=== PATIENT | female | born 1955 | race Caucasian/White ===

== ENCOUNTER → 2020-08-13 08:09 | Outpatient (CLI) | payer BC, SELFPAY ==
--- NOTE | ~2020-08-13 | CT_ITS ---
EXAMINATION:CT chest w con DATE: 08/13/2020 08:39 INDICATION: Chest pain. Shortness of breath. Cough. COVID-19 pneumonia. TECHNIQUE: Computed tomography (CT) of the chest was performed with 75 mL Omnipaque 350 intravenous c ontrast. Automated exposure control and iterative reconstruction technique were employed. The dose-le ngth product (DLP) was 520.32 mGy-cm. COMPARISON: Chest CT 10/20/2008, CT abdomen and pelvis 06/25/2016 FINDINGS: There are patchy groundglass opacities involving all lobes. A calcified left lung nodule an d calcified left hilar and mediastinal lymph nodes are consistent with old granulomatous disease. No pleural effusion. The heart size is normal. There are coronary artery calcifications. There is a smal l pericardial effusion. There is mild bilateral hilar lymphadenopathy. Partially visualized is a rn chronic adelita cyst with calcification in left kidney. There is mild thoracic spondylosis. IMPRESSION: 1. Diffuse lung disease, consistent with pneumonia. 2. Mild bilateral hilar lymphadenopathy, likely reactive. 3. Small pericardial effusion. Reviewed, dictated and finalized at location A. RAL NEUROLOGIST
[2020-08-13 08:27] LABS: Estimated Glomerular Filt Rate > 60
== END ==
PROVIDERS: PCP Emergency Medicine; Visit Provider Emergency Medicine
DX: U07.1 COVID-19 (principal); J18.9 Pneumonia, unspecified organism; R06.00 Dyspnea, unspecified; J12.89 Other viral pneumonia; I25.10 Atherosclerotic heart disease of native coronary artery without angina pectoris; R59.0 Localized enlarged lymph nodes; I31.3 Pericardial effusion (noninflammatory); N28.1 Cyst of kidney, acquired; N20.0 Calculus of kidney
CPT/HCPCS: 71260; Q9967

== ENCOUNTER 2020-08-27 11:36 | Outpatient (NON) | payer BC, SELFPAY ==
[2020-08-27 23:25] LABS: SARS-CoV-2 RNA PCR Negative
== END 2020-08-27 11:37 ==
LOC: ANHCOVIDDT 11:38
PROVIDERS: PCP Emergency Medicine; Visit Provider Emergency Medicine
DX: Z20.828 Contact with and (suspected) exposure to other viral communicable diseases (principal); R09.89 Other specified symptoms and signs involving the circulatory and respiratory systems
CPT/HCPCS: 87635; C9803; U0003

== ENCOUNTER → 2020-09-23 17:02 | Outpatient (CLI) | payer BC, SELFPAY ==
--- NOTE | ~2020-09-23 | XR_ITS ---
EXAMINATION: XR chest 2V DATE: 09/23/2020 17:23 INDICATION: Shortness of breath TECHNIQUE: PA and lateral views of the chest are obtained. COMPARISON: 10/19/2008; CT, 08/13/2020 FINDINGS: The lungs are free of acute opacities. There is no pleural effusion or pneumothorax. The ca rdiomediastinal silhouette is normal. There is moderate thoracic spondylosis. IMPRESSION: 1. No acute cardiopulmonary abnormality. Reviewed, dictated and finalized at location A. RNATIONAL PROJECT ENGINEER
== END ==
PROVIDERS: PCP Emergency Medicine; Visit Provider Emergency Medicine
DX: J18.9 Pneumonia, unspecified organism (principal)
CPT/HCPCS: 71046

== ENCOUNTER → 2020-10-19 10:16 | Outpatient (CLI) | payer BC, SELFPAY ==
--- NOTE | ~2020-10-19 | MM_ITS ---
EXAMINATION: MM screening jazmyne BI w musa HISTORY: Screening TECHNIQUE: Craniocaudal and mediolateral oblique 3-D tomosynthesis images were obtained and synthetic 2-D images were generated. CAD analysis was submitted and interpreted. COMPARISON: No prior mammogram is available for comparison at this institution. BREAST PARENCHYMAL COMPOSITION: There are scattered areas of fibroglandular density. FINDINGS: There is no evidence of suspicious mass, calcification, or architectural distortion to sugg est malignancy in either breast. There has been no suspicious interval change. IMPRESSION: 1. No mammographic evidence of malignancy. 2. Recommend routine screening mammography in one year. BI-RADS Category 1: Negative Reviewed, dictated and finalized at location A. NCE EDITOR
--- NOTE | ~2020-10-19 | DEXA_ITS ---
Bone Density Report Name: Rola Recinos Age: 65 Sex: Female Ethnicity: White Date of : 1955 Indication: postmenopausal; screening for osteoporosis; hysterectomy; Referring Provider: WHITLEY MARTINEZ Study: Bone densitometry was performed. Exam Date: October 19, 2020 Accession number: [id number] Bone Density: Region BMD T-score Z-score Classification AP Spine (L1-L4) 1.115 0.6 2.3 Normal Femoral Neck (Left) 0.854 0.0 1.5 Normal Total Hip (Left) 0.969 0.2 1.4 Normal Femoral Neck (Right) 0.787 -0.6 0.9 Normal Total Hip (Right) 0.921 -0.2 1.0 Normal Total Hip Mean 0.945 0.0 1.2 Normal World Health Organization criteria for BMD impression classify patients as: Normal (T-score at or above -1.0), Osteopenia (T-score between -1.0 and -2.5), or Osteoporosis (T-score at or below -2.5). 10-year Fracture Risk: FRAX not reported because: All T-scores for Spine Total, Hip Total, Femoral Neck at or above -1.0 Clinical Information Provided by Patient: Has used the following medications: Vitamin D Has the following medical conditions: Hysterectomy Patient maximum height was 65 Menopause Age: 55 No regular weight bearing exercise Does not regularly consume dairy products Drinks caffeinated beverages Onset of menses at age 16 Number of children 3 Impression: The patient has normal bone mass. Discussion: BONE DENSITY IS ABOVE THE MINIMUM DESIRABLE LEVEL AT ALL SKELETAL SITES TESTED. This patient?s bone mineral density is above the minimum desirable level (T-score -1.0 or better) at all sites measured. The patient should follow a healthful lifestyle (good nutrition with adequate calcium and vitamin D, and appropriate weight-bearing exercise). Follow-Up: Consider repeating this study in 5 years or sooner if there is some new clinical indication. Reported by: DONNIE on 10/19/2020 10:48:00 AM. Reviewed, dictated and finalized at location AJovon PAULINO
== END ==
PROVIDERS: PCP Emergency Medicine; Visit Provider Emergency Medicine
DX: Z12.31 Encounter for screening mammogram for malignant neoplasm of breast (principal); Z78.0 Asymptomatic menopausal state
CPT/HCPCS: 77063; 77067; 77080

== ENCOUNTER → 2020-12-31 09:41 | Outpatient (CLI) | payer BC, SELFPAY ==
--- NOTE | ~2020-12-31 | US_ITS ---
EXAMINATION: US thyroid EXAM DATE: 12/31/2020 09:57 INDICATION: E04.1 - Nontoxic single thyroid nodule . TECHNIQUE: Multiple grayscale and Doppler images of the thyroid were obtained (by a technologist who performed the scan) and subsequently reviewed. Individual nodules and recommendations may be reporte d in accordance with TI-RADS system as designated by the 2017 ACR White Paper TI-RADS committee. Comp arison is made to prior examination from 06/05/2015. FINDINGS: The right there are lobe measures 6.6 x 2.6 x 2.6 cm, the left measuring 4.9 x 2.0 x 2.1 cm. These di mensions are mildly enlarged, and there is mildly diffusely heterogeneous thyroid echogenicity. David red to 2015 overall size of the thyroid has demonstrated modest interval decrease, with more homogene ous parenchyma echogenicity than previously seen. Largest nodule is in the right there are lobe measuring 1.8 x 1.1 x 1.3 cm, solid (2 points), isoecho ic (1 point), wider than tall, smooth well defined margin, without echogenic foci, category TR3 for t his nodule. In 2015 this was also the largest nodule, measuring 2.0 x 1.2 x 1.2 cm, has demonstrated modest interval decrease in size consistent with benign histology. There are scattered other subcent imeter TR 3 and TR 4 nodules bilaterally as previously seen. These are not likely clinically signific ant. IMPRESSION: Multinodular goiter. Return to clinical follow-up and if additional palpable abnormality develops a repeat ultrasound can be obtained. Reviewed, dictated and finalized at location A. IMPRESSION: Multinodular goiter. Return to clinical follow-up and if additiona l palpable abnormality develops a repeat ultrasound can be obtained.
== END ==
PROVIDERS: PCP Emergency Medicine; Visit Provider Internal Medicine Endocrinology, Diabetes & Metabolism
DX: E04.2 Nontoxic multinodular goiter (principal)
CPT/HCPCS: 76536

== ENCOUNTER → 2022-05-03 10:32 | Outpatient (CLI) | payer MEDICARE, SELFPAY ==
--- NOTE | ~2022-05-03 | MM_ITS ---
EXAMINATION: MM screening jazmyne BI w musa HISTORY: Screening mammogram TECHNIQUE: Craniocaudal and mediolateral oblique 3-D tomosynthesis images were obtained and synthetic 2-D images were generated. CAD analysis was submitted and interpreted. COMPARISON: 10/19/2020 BREAST PARENCHYMAL COMPOSITION: The breasts are almost entirely fatty. FINDINGS: There is no suspicious mass, calcification, or architectural distortion to suggest malignan cy in either breast. There has been no suspicious interval change. IMPRESSION: 1. No mammographic evidence of malignancy. 2. Recommend routine screening mammography in one year. BI-RADS Category 1: Negative Reviewed, dictated and finalized at location A.
== END ==
PROVIDERS: PCP Emergency Medicine; Visit Provider Emergency Medicine
DX: Z12.31 Encounter for screening mammogram for malignant neoplasm of breast (principal)
CPT/HCPCS: 77063; 77067

== ENCOUNTER → 2022-12-23 10:37 | Outpatient (CLI) | payer MEDICARE, SELFPAY ==
--- NOTE | ~2022-12-23 | US_ITS ---
Abdominal Sonogram: Real-time sonographic imaging of the abdomen was performed. Clinical History: Abdominal pain Findings: The liver appears echogenic, with no evidence of mass lesion or bile duct dilatation. Main portal vein demonstrates normal direction of flow. The spleen is normal in size without evidence of focal lesion. The gallbladder is well distended, and appears normal with no definite gallstone. Prob able gallbladder polyps measuring up to 8 mm. The common bile duct measures 4 mm. The visualized glover creas, aorta, and IVC are unremarkable. The right kidney measures 9.3 cm in length and the left kidn ey measures 9.9 cm. There is no hydronephrosis or renal calculus. Impression: Probable gallbladder wall polyps measuring up to 8 mm. Diffuse fatty infiltration of the liver. Reviewed, dictated and finalized at [facility]. Impression: Probable gallbladder wall polyps measuring up to 8 mm. Diffuse fatty infiltration of the liver.
== END ==
PROVIDERS: PCP Emergency Medicine; Visit Provider Emergency Medicine
DX: R10.10 Upper abdominal pain, unspecified (principal); K76.0 Fatty (change of) liver, not elsewhere classified
CPT/HCPCS: 76700

== ENCOUNTER 2023-01-25 07:20 | Outpatient (CLI) | payer MEDICARE, SELFPAY ==
--- NOTE | ~2023-01-25 | NM_ITS ---
EXAMINATION: NM hepatobiliary wo pharm DATE: 01/25/2023 10:11 INDICATION: Upper abdominal pain. COMPARISON: Abdomen ultrasound 12/23/2022 TECHNIQUE: 4.9 mCi Tc-99m mebrofenin (Choletec) was administered intravenously. Scintigraphic images of the abdomen were obtained for one hour. Then, the patient drank 8 oz Ensure, and imaging was cont inued for 60 minutes. FINDINGS: There is normal clearance of radiotracer from the blood pool. There is homogeneous tracer u ptake by the liver. Activity progresses to the bowel and gallbladder. Gallbladder ejection fraction (GBEF) was 30%. Note that with this technique, normal GBEF >= 33%. IMPRESSION: 1. Low gallbladder ejection fraction, consistent with gallbladder dysfunction and/or chronic cholecy stitis. Reviewed, dictated and finalized at location A. IMPRESSION: 1. Low gallbladder ejection fraction, consistent with gallbladder dysfunction and/or chronic cholecystitis.
== END 2023-01-25 07:21 | disposition home or self-care (01) ==
PROVIDERS: PCP Emergency Medicine; Visit Provider Emergency Medicine
DX: R10.10 Upper abdominal pain, unspecified (principal); K82.8 Other specified diseases of gallbladder
CPT/HCPCS: 78226; A9537

== ENCOUNTER 2023-02-06 09:04 | Outpatient (CLI) | payer MEDICARE, SELFPAY ==
--- NOTE | 2023-02-06 09:38 | ECG_ITS ---
Measurements Intervals [place] Rate: 70 P: -5 [place]: 232 QRS: 32 QRSD: 84 T: 34 QT: 365 QTc: 394 Interpretive Statements SINUS RHYTHM WITH FIRST DEGREE AV BLOCK LOW QRS VOLTAGE IN PRECORDIAL LEADS NONSPECIFIC T-WAVE ABNORMALITY- ANTERIOR LEADS BASELINE ARTIFACT- I, II, III, AVR, AVL, V3, V5-V6 BORDERLINE ECG NO PREVIOUS ECG AVAILABLE FOR COMPARISON Electronically Signed On 02-06-2023 9:59:03 CDT by Marino Monge D.O.
[2023-02-06 10:21] LABS: Prothrombin Time 13.3 Seconds (11.1-14.7)
[2023-02-06 10:22] LABS: Partial Thromboplastin Time 25.3 SECONDS (22.3-36.8)
[2023-02-06 10:24] LABS: Anion Gap 7 mmol/L (8-16); Blood Urea Nitrogen 11 mg/dL (7-17); Calcium 9.3 mg/dL (8.4-10.2); Carbon Dioxide 30 mmol/L (22-30); Chloride 101 mmol/L (98-107); Estimated Glomerular Filt Rate > 60; Glucose 179 mg/dL (65-110); Potassium 3.5 mmol/L (3.4-5.0); Sodium 138 mmol/L (137-145)
[2023-02-06 10:25] LABS: Alanine Aminotransferase 20 U/L (6-35); Albumin Level 4.4 g/dL (3.5-5.1); Alkaline Phosphatase 60 U/L (38-126); Amylase 85 U/L (30-110); Aspartate Amino Transferase 27 U/L (14-36); Bilirubin,Total 0.6 mg/dL (0.2-1.3); Lipase 172 U/L (23-300)
== END 2023-02-06 09:05 | disposition home or self-care (01) ==
PROVIDERS: Anesthesiology; PCP Emergency Medicine; Visit Provider Surgery
DX: Z01.818 Encounter for other preprocedural examination (principal); K82.8 Other specified diseases of gallbladder; K76.0 Fatty (change of) liver, not elsewhere classified; E11.9 Type 2 diabetes mellitus without complications
CPT/HCPCS: 36415; 80048; 80076; 82150; 83690; 85610; 85730; 86850; 86900; 86901; 93005

== ENCOUNTER 2023-02-07 00:08 | Day surgery (SDC) | payer MEDICARE, SELFPAY ==
[2023-02-03 09:29] VITALS: BMI 33.3
--- NOTE | 2023-02-03 09:44 | PC.NURSE ---
PRE-OP INSTRUCTIONS, PLEASE READ CAREFULLY Report to the Outpatient Waiting Room, entrance under the green pavilion located off [facility], at time _1000_ on date _02/07/23_. Planned Procedure Time: _1200_. Time changes happen often and if your time is changed the preop area will call you the afternoon before. - You and your visitor will be asked to self-screen and do not enter if you have any COVID symptoms. - A mask is optional within the hospital at this time. Patients may have clear liquids (water, carbonated beverages, clear teas, apple juice) until 3 hours prior to surgery (0900 AM) with a maximum of 20 ounces. - No food from midnight until time of surgery Take the following medications with a SIP of water the morning of surgery: _METHIMAZOLE_ DO NOT STOP ANY OF YOUR OTHER PRESCRIPTION MEDICATIONS PRIOR TO SURGERY ?EXCEPT THE FOLLOWING Medications to discontinue per ANESTHESIA -_VITAMINS/SUPPLEMENTS 3 DAYS PRIOR TO SURGERY, Date to take last dose 02/03/23_ Please no make-up, nail moroccan, hairspray, perfume, deodorant, or body powder the day of surgery. No jewelry (including any body piercings) or valuables the day of surgery, leave them at home. Please take a shower or bath the night before, or the morning of, surgery with an antibacterial soap. Wear comfortable, loose fitting clothing. - Jewelry must be removed prior to entering the operating room. Rings and piercings that are not removed may be cut off. - The hospital will not accept responsibility for valuables. - Please leave all valuables, including medications, at home the day of surgery. If you are going home after surgery, a licensed class a regional truck driver must drive you home. - NO public transportation without another adult if you receive anesthesia. - We recommend that an adult stay with you for 24 hours following discharge. - We also recommend that you do not drive, make important decision, drink alcoholic beverages, or take any drugs that were not prescribed by your health care provider for at least 24 hours after your discharge time. Follow any additional instructions given to you from your surgeon. HIBICLENS SHOWER AM OF SURGERY If you or anyone in your household have experienced Covid symptoms in the past week, please notify your surgeon or the nurse liaison at the phone number below for possible testing. Telephone instructions given to _PATIENT_and asked if any additional questions and then verbalized understanding. Patient advised to call surgeon office or pre surgery nurse liaison [phone] if any additional questions.
[2023-02-07] VITALS (16 sets, daily range): BP systolic 120–157; BP diastolic 42–85; PULSE 74–99; RESP 14–18; TEMP 36.6–36.7; O2SAT 88–99
[2023-02-07] MEDS: ACETAMINOPHEN 500 MG TABLET 1000 MG PO (10:07)
[2023-02-07] MEDS: LACTATED RINGERS 1,000 ML 30 ML IV CONT ×3 (10:30→14:46)
[2023-02-07] MEDS: KETOROLAC 15 MG/ML VIAL (*BKC) IV PUSH ×2 (10:31→13:59)
[2023-02-07 10:35] LABS: Glucose Point of Care 96 mg/dl (65-105)
[2023-02-07] MEDS: INDOCYANINE GREEN 25 MG VIAL WITH DILUENT 3.75 MG IV PUSH (10:38)
--- NOTE | 2023-02-07 12:14 | WPDHPUPDATE1 ---
History and Physical Update Update Date/Time: 02/07/23 12:14 History and Physical has been reviewed, including an updated exam of the patient. There are NO changes in the patient's condition. Risks, benefits, and alternatives have been discussed and questions answered. Patient agrees to proceed with procedure.
--- NOTE | 2023-02-07 12:19 | WPDANESEPPF ---
Anes - Initial Pre Proc Eval Procedure: Operation Date: 02/07/23 12:00 Proposed Procedures p Robotic Assisted Laparoscopic Cholecystectomy, Possible Open - Myles Gore MD Date/Time: 02/07/23 12:19 Surgeon: Myles Gore MD Pre Op Diagnosis: gallbladder polyp and dysfunction Patient Data Age: 67 Gender: F Height: 1.66 m Weight: 92.27 kg Last Vital Signs Temp 98.1 F 02/07/23 10:40 Pulse 79 02/07/23 10:40 Resp 16 02/07/23 10:40 BP 130/77 02/07/23 10:40 Pulse Ox 99 02/07/23 10:40 O2 Del Method Room Air 02/07/23 10:40 Allergies Allergy/AdvReac Type Severity Reaction Status Date / Time Penicillins Allergy Unknown Rash Verified 02/07/23 10:05 Home Medications Medication Instructions Recorded Confirmed Type lisinopril 20 1 tablet PO DAILY 09/10/20 02/03/23 History mg-hydrochlorothiazide 25 mg tablet rosuvastatin 10 mg tablet (Crestor) 10 mg PO DAILY 09/10/20 02/03/23 History aspirin 81 mg tablet,delayed 81 mg PO DAILY 12/17/20 02/03/23 History release (Adult Low Dose Aspirin) cholecalciferol (vitamin D3) 10 10 mcg PO DAILY 12/17/20 02/03/23 History mcg (400 unit) capsule metformin 500 mg tablet,extended 500 mg PO BID 12/17/20 02/03/23 History release 24 hr ascorbic acid (vitamin C) 500 mg 500 mg PO QAM 06/23/22 02/03/23 History capsule vit C 250 mg-vit E 90 mg-zinc 40 1 tablet PO BID 06/23/22 02/03/23 History mg-copper 1 [id number] capsule (PreserVision AREDS-2) methimazole 5 mg tablet See Rx Instructions .Route 12/26/22 02/03/23 Rx .COMPLEX #54 tabs omeprazole 20 mg capsule,delayed 20 mg PO DAILY 01/31/23 02/03/23 History release semaglutide 3 mg tablet (Rybelsus) 3 mg PO QAM 02/03/23 02/03/23 History Laboratory Tests 02/07/23 10:31 POC Capillary Glucose 96 mg/dl (65-105) Patient hx anesthesia problems: none Family hx anesthesia problems: none Results Review: All pre-operative results and documents have been reviewed as part of the pre-operative evaluation. [facility] Past Medical History Medical History Hypertension Hyperthyroidism Hypertriglyceridemia Type 2 diabetes mellitus Surgical History Surgical History H/O: hysterectomy Family History Family History Father Family history of malignant neoplasm Other Diabetes mellitus Family history of congestive heart failure Heart disease Social History Social History Smoking packs per day: 1 Smoking cigarettes per day: 20.0 Years smoked: 10 Smoking pack-years: 10.00 Smoking status: Former smoker Tobacco type: cigarettes Second hand tobacco smoke exposure: No Additional smoking assessment comments: PT STATES STOPPED SMOKING 2009~ Alcohol intake: never Substance use: never Substance use type: does not use Living arrangements: with family Occupation/Education: retired Spiritual care concerns: No Anes - Eval Final PreProcedure Day of Procedure 02/07/23 12:19 Patient weight: obese Heart: regular rate and rhythm Lungs: clear to auscultation Airway: Mallampati scale class III Neurological: alert and oriented Last oral intake: >/= 8 hours ASA classification: III Emergent: no Anesthetic plan: proceed Anesthesia type and monitoring: general ETT and standard monitoring Results Review: All pre-operative results and documents have been reviewed as part of the pre-operative evaluation. Informed Consent: The patient's anesthetic plan and its attendant risks and benefits were discussed with the patient/family/POA. Questions were solicited and answers provided to the satisfaction of the patient/family/POA.
[2023-02-07] MEDS: ceFAZolin 2 GM/D5W 50 ML 2 GM/50 ML BAG IVPB (12:24)
[2023-02-07] MEDS: LIDO 1%/EPINEPHRINE 1:100,000 50 ML VIAL 30 ML INFILTRATE (12:58)
[2023-02-07] MEDS: BUPivacaine HCL 0.5% PF 30 ML VIAL INFILTRATE (12:58)
--- NOTE | 2023-02-07 14:21 | W.PM.PROC2 ---
Procedure Note - Detailed Date of Procedure 02/07/23 Pre-op Diagnosis gallbladder polyp and dysfunction Post-op Diagnosis Same Procedure Performed Robotic assisted laparoscopic cholecystectomy Surgeon Myles Gore MD Sack Department Supervisor DONNIE Sarmiento Anesthesia General Indications The patient is a 7-year-old female presented with complaints of epigastric and right upper quadrant abdominal pain associated with eating. Abdominal ultrasound showed no evidence of gallstones but a HIDA scan showed a low ejection fraction gallbladder on 30%. She has symptoms of nausea and right upper quadrant pain with drinking the Ensure for the HIDA scan. Findings Minimal chronic inflammation the gallbladder with just a few adhesions of the omentum to the gallbladder. Gallbladder wall was relatively normal in appearance. No stones noted the gallbladder. Description of Procedure After informed consent was obtained patient brought to the operating room where she was placed supine position and general endotracheal anesthesia was administered. The abdomen then prepped and draped in usual sterile fashion. A time-out was then performed correctly identifying the patient as well as procedure performed and verified she was given perioperative IV antibiotics. I then proceeded to enter the abdomen left upper quadrant utilizing a 10 mm Optiview port. Once inside the abdomen I insufflated to adequate pneumoperitoneum 15mm Hg of CO2. Looking around the area the umbilicus there are no adhesions areas I placed the 8mm robotic trocar port periumbilical region and then additional 8mm trocar ports in the left and right sides of the abdomen all under direct visualization. The [employer] Rebecca robot was brought to the patient's bedside and the robotic arms were attached to the robotic ports. Robotic instruments advanced into the abdomen under visualization. I then scrubbed out the procedure sent out the robotic console to perform the dissection the gallbladder. The robotic grasper used the gallbladder at the dome of the gallbladder retracted towards the right shoulder over the right half liver. Second grasper was used to hold the gallbladder infundibulum. I then proceed to use the robotic hook cautery to strip down dissect the visceral peritoneum off of the infundibular gallbladder and identified the cystic artery and cystic duct. Firefly was used to confirm fluorescence imaging of the cystic duct and common bile duct. I then circumferentially dissected out the cystic duct and the cystic artery. Once I had the lower 3rd of the gallbladder dissected off of the right liver bed I then that I had the critical view and placed 2 clips proximal to cystic duct and 1 clip distally high on infundibular gallbladder. The cystic duct was then divided with robotic hook cautery. The cystic artery was then clipped and divided as well in similar fashion. The gallbladder was resected off the liver electrocautery. This is done without spilling any bile. Once the gallbladder was placed into an Endo-Catch bag was then brought out through the left upper quadrant trocar port site. Gallbladder and contents were sent to pathology for examination. I then inspected liver bed there is no evidence of bile leak and there was no bleeding. I then removed all the trocar ports under visualization all port sites appeared hemostatic. I then allowed the abdomen decompressed. The 10mm left upper quadrant trocar port fascial defect was then closed utilizing 0 Vicryl suture placed in a figure-eight fashion. The skin edges not the port sites of the proximal utilizing a running subcuticular 4 Monocryl suture. Incisions were then cleaned and then skin glue was applied for final dressing. The patient tolerated the procedure well no complications. All sponges, needles, and instrument counts were correct at the end procedure. EBL was _10__cc. The patient was awakened and taken to recovery in stable and satisfactory condition. Implants None
[2023-02-07] MEDS: fentaNYL CITRATE INJ (*CRX) 100 MCG/2 ML VIAL 25 MCG IV PUSH ×4 (14:22→14:50)
[2023-02-07 14:40] LABS: Glucose Point of Care 140 mg/dl (65-105)
[2023-02-07] MEDS: ONDANSETRON INJ 4 MG/2 ML VIAL IV PUSH (15:01)
[2023-02-07] MEDS: diphenhydrAMINE HCl INJ 50 MG/ML VIAL 12.5 MG IV PUSH (15:32)
[2023-02-07] MEDS: oxyCODONE HCL (*CRX) 5 MG TAB IR PO (17:50)
== END 2023-02-07 18:24 | disposition home or self-care (01) ==
PROVIDERS: PCP Emergency Medicine; Visit Provider Surgery
PROC: 0FT44ZZ Resection of Gallbladder, Percutaneous Endoscopic Approach (ICD-10-PCS; CPT 47562; principal; 2023-02-07 12:00)
DX: K81.1 Chronic cholecystitis (principal); I10 Essential (primary) hypertension; E11.9 Type 2 diabetes mellitus without complications; E78.1 Pure hyperglyceridemia; E05.90 Thyrotoxicosis, unspecified without thyrotoxic crisis or storm; Z87.891 Personal history of nicotine dependence; E66.9 Obesity, unspecified; Z68.33 Body mass index [BMI] 33.0-33.9, adult; Z79.84 Long term (current) use of oral hypoglycemic drugs; Z79.82 Long term (current) use of aspirin
CPT/HCPCS: 47562; S2900; 82948; 88304; A9270; J0690; J1100; J1170; J1200; J1885; J2250; J2405; J2704; J2710; J3010; J7120

== ENCOUNTER 2023-02-28 00:16 | Day surgery (SDC) | payer MEDICARE, SELFPAY ==
[2023-02-22 09:51] VITALS: BMI 32.0
--- NOTE | 2023-02-28 08:34 | WPDANESEPPF ---
Anes - Initial Pre Proc Eval Procedure: Operation Date: 02/28/23 10:00 Proposed Procedures p Esophagogastroduodenoscopy - Francis Brewer MD Date/Time: 02/28/23 08:34 Surgeon: Francis Brewer MD Pre Op Diagnosis: GERD, Abdominal Pain Patient Data Age: 67 Gender: F Height: 1.68 m Weight: 90 kg Allergies Allergy/AdvReac Type Severity Reaction Status Date / Time Penicillins Allergy Unknown Rash Verified 02/28/23 08:36 Home Medications Medication Instructions Recorded Confirmed Type lisinopril 20 1 tablet PO DAILY 09/10/20 02/22/23 History mg-hydrochlorothiazide 25 mg tablet rosuvastatin 10 mg tablet (Crestor) 10 mg PO DAILY 09/10/20 02/22/23 History aspirin 81 mg tablet,delayed 81 mg PO DAILY 12/17/20 02/22/23 History release (Adult Low Dose Aspirin) cholecalciferol (vitamin D3) 10 10 mcg PO DAILY 12/17/20 02/22/23 History mcg (400 unit) capsule metformin 500 mg tablet,extended 500 mg PO BID 12/17/20 02/22/23 History release 24 hr vit C 250 mg-vit E 90 mg-zinc 40 1 tablet PO BID 06/23/22 02/22/23 History mg-copper 1 [id number] capsule (PreserVision AREDS-2) methimazole 5 mg tablet See Rx Instructions .Route 12/26/22 02/22/23 Rx .COMPLEX #54 tabs omeprazole 20 mg capsule,delayed 20 mg PO DAILY 01/31/23 02/22/23 History release Patient hx anesthesia problems: none Family hx anesthesia problems: none Results Review: All pre-operative results and documents have been reviewed as part of the pre-operative evaluation. [facility] Past Medical History Medical History (Updated 02/28/23 @ 08:35 by Gianluca Ruiz MD) Hypertension Hyperthyroidism Hypertriglyceridemia Obesity Type 2 diabetes mellitus Surgical History Surgical History (Updated 02/21/23 @ 08:57 by REBA Hoyos) H/O: hysterectomy Hx laparoscopic cholecystectomy Robotic assisted lap sun on 02/07/23 Family History Family History Father Family history of malignant neoplasm Other Diabetes mellitus Family history of congestive heart failure Heart disease Social History Social History Smoking packs per day: 1 Smoking cigarettes per day: 20.0 Years smoked: 10 Smoking pack-years: 10.00 Smoking status: Former smoker Tobacco type: cigarettes Second hand tobacco smoke exposure: No Additional smoking assessment comments: PT STATES STOPPED SMOKING 2008~ Alcohol intake: never Substance use: never Substance use type: does not use Living arrangements: with family Occupation/Education: retired Spiritual care concerns: No Anes - Eval Final PreProcedure Day of Procedure 02/28/23 08:34 Patient weight: obese Heart: regular rate and rhythm Lungs: clear to auscultation Airway: Mallampati scale class III Neurological: alert and oriented Last oral intake: >/= 8 hours ASA classification: III Emergent: no Anesthetic plan: proceed Anesthesia type and monitoring: general GIVS and standard monitoring Results Review: All pre-operative results and documents have been reviewed as part of the pre-operative evaluation. Informed Consent: The patient's anesthetic plan and its attendant risks and benefits were discussed with the patient/family/POA. Questions were solicited and answers provided to the satisfaction of the patient/family/POA.
[2023-02-28 08:37] VITALS: BP 142/60; PULSE 77; RESP 20; TEMP 36.6; O2SAT 98
[2023-02-28] MEDS: LACTATED RINGERS 1,000 ML 150 ML IV CONT (08:50)
[2023-02-28 08:51] LABS: Glucose Point of Care 118 mg/dl (65-105)
--- NOTE | 2023-02-28 08:52 | PM.HPGS ---
History of Present Illness History of Present Illness Consent: Risks, benefits, and alternatives have been discussed and questions answered. Patient agrees to proceed with procedure. Chief complaint: GERD, Abdominal Pain Narrative: Rola Recinos is a 67 year old female with gerd on ppi, recently had cholecystectomy and slightly better Review of Systems Constitutional: Constitutional: Denies headache(s) and Denies weakness Eyes: Eyes: Denies blurry vision ENT: Reports Normal hearing present, Denies headache(s) and Denies neck pain Cardiovascular: Cardiovascular: Denies chest pain and Denies dyspnea Respiratory: Respiratory: Denies dyspnea Gastrointestinal: Gastrointestinal: Reports no additional gastrointestinal complaints Genitourinary: Genitourinary: Denies dysuria Musculoskeletal: Musculoskeletal: Denies neck pain Integumentary/Breasts: Skin/Breast: Denies dry skin Neurologic: Reports Normal hearing present, Denies headache(s) and Denies weakness Psychiatric: Psychiatric: Denies anxiety Endocrine: Endocrine: Denies change in body appearance Hematologic/Lymphatic: Hematologic/Lymphatic: Denies easy bleeding Allergic/Immunologic: Allergic/Immunologic: Denies urticaria PMFSH Past Medical History Medical History (Updated 02/28/23 @ 08:53 by Francis Brewer MD) GERD (gastroesophageal reflux disease) Hypertension Hyperthyroidism Hypertriglyceridemia Obesity Type 2 diabetes mellitus Surgical History Surgical History (Updated 02/21/23 @ 08:57 by REBA Hoyos) H/O: hysterectomy Hx laparoscopic cholecystectomy Robotic assisted lap sun on 02/07/23 Family History Family History Father Family history of malignant neoplasm Other Diabetes mellitus Family history of congestive heart failure Heart disease Social History Social History Smoking packs per day: 1 Smoking cigarettes per day: 20.0 Years smoked: 10 Smoking pack-years: 10.00 Smoking status: Former smoker Tobacco type: cigarettes Second hand tobacco smoke exposure: No Additional smoking assessment comments: PT STATES STOPPED SMOKING 2009~ Alcohol intake: never Substance use: never Substance use type: does not use Living arrangements: with family Occupation/Education: retired Spiritual care concerns: No Meds Home Medications and Allergies Home Medications Medication Instructions Recorded Confirmed Type lisinopril 20 1 tablet PO DAILY 09/10/20 02/22/23 History mg-hydrochlorothiazide 25 mg tablet rosuvastatin 10 mg tablet (Crestor) 10 mg PO DAILY 09/10/20 02/22/23 History aspirin 81 mg tablet,delayed 81 mg PO DAILY 12/17/20 02/22/23 History release (Adult Low Dose Aspirin) cholecalciferol (vitamin D3) 10 10 mcg PO DAILY 12/17/20 02/22/23 History mcg (400 unit) capsule metformin 500 mg tablet,extended 500 mg PO BID 12/17/20 02/22/23 History release 24 hr vit C 250 mg-vit E 90 mg-zinc 40 1 tablet PO BID 06/23/22 02/22/23 History mg-copper 1 [id number] capsule (PreserVision AREDS-2) methimazole 5 mg tablet See Rx Instructions .Route 12/26/22 02/22/23 Rx .COMPLEX #54 tabs omeprazole 20 mg capsule,delayed 20 mg PO DAILY 01/31/23 02/22/23 History release Allergies Allergy/AdvReac Type Severity Reaction Status Date / Time Penicillins Allergy Unknown Rash Verified 02/28/23 08:36 Vital Signs Vital Signs - 24 hr 02/28/23 08:37 Temperature 97.8 F Pulse Rate 77 Respiratory Rate 20 Blood Pressure 142/60 H Pulse Oximetry 98 Oxygen Delivery Room Air Exam Const: General: comfortable and no acute distress HENMT: Face/Nose/Sinus: Normal nares present Eyes: General: appearance normal, both eyes and all related structures Neck: Neck: no JVD Resp: Auscultation: clear to auscultation bilaterally Cardio: Rate:
[2023-02-28 09:01] VITALS: BP 125/56; PULSE 68; RESP 20; O2SAT 97
[2023-02-28 09:11] VITALS: BP 113/51; PULSE 64; RESP 22; O2SAT 97
[2023-02-28 09:21] VITALS: BP 120/54; PULSE 65; RESP 20; O2SAT 97
== END 2023-02-28 09:32 | disposition home or self-care (01) ==
PROVIDERS: PCP Emergency Medicine; Visit Provider Internal Medicine Gastroenterology
PROC: 0DJ08ZZ Inspection of Upper Intestinal Tract, Via Natural or Artificial Opening Endoscopic (ICD-10-PCS; CPT 43235; principal; 2023-02-28 10:00)
DX: K21.9 Gastro-esophageal reflux disease without esophagitis (principal); K29.70 Gastritis, unspecified, without bleeding; I10 Essential (primary) hypertension; E05.90 Thyrotoxicosis, unspecified without thyrotoxic crisis or storm; E78.1 Pure hyperglyceridemia; E11.9 Type 2 diabetes mellitus without complications; E66.9 Obesity, unspecified; Z68.32 Body mass index [BMI] 32.0-32.9, adult; Z79.84 Long term (current) use of oral hypoglycemic drugs; Z79.82 Long term (current) use of aspirin; Z87.891 Personal history of nicotine dependence
CPT/HCPCS: 43239; 82948; 88305; J2704; J7120

== ENCOUNTER 2023-04-24 10:29 | Emergency (ER) | payer MEDICARE, SELFPAY ==
--- NOTE | ~2023-04-24 | CT_ITS ---
Non-contrast CT scan of the Abdomen and Pelvis Clinical indication: Right flank pain Technique: 2.5 mm axial scans were obtained through the abdomen and pelvis without intravenous or or al contrast. Dose reduction technique was used on this scan by utilizing automated exposure control a nd iterative reconstruction technique. The dose-length product (DLP) was 832.49 mGy-cm. COMPARISON: 06/25/2016 Findings: Images through the lung bases reveal no abnormalities. Probable punctate nonobstructing right renal stone present. Coarse parenchymal dystrophic calcificati on noted in the left kidney. No ureteral stone or hydronephrosis on either side. The liver, spleen, pancreas, and adrenals appear normal. Cholecystectomy clips are present. There are atherosclerotic calcifications of the aorta. There is no evidence of bowel obstruction. Images through the pelvis were performed. There is no evidence of ascites or lymphadenopathy. Urinary bladder unremarkable. No adnexal mass seen. No ascites. Impression: Punctate nonobstructing right renal stone. Reviewed, dictated and finalized at [facility]. Impression: Punctate nonobstructing right renal stone.
[2023-04-24 10:57] VITALS: BP 149/60; PULSE 90; RESP 20; TEMP 36.4; O2SAT 96
[2023-04-24 11:55] LABS: Basophils Absolute Auto 0.1 K/mm3 (0.0-0.1); Eosinophils Absolute Auto 0.3 K/mm3 (0-0.3); Eosinophils Percent Auto 4.9 % (0-4.4); Hematocrit 40.3 % (37.0-47.0); Hemoglobin 13.5 g/dL (12.0-15.0); Immature Granulocyte Absolute 0.01 K/mm3 (0.00-0.031); Immature Granulocyte Percent A 0.2 % (0-0.5); Lymphocytes Absolute Auto 1.21 K/mm3 (0.9-3.2); Lymphocytes Percent Auto 23.7 % (18.3-44.2); Mean Corpuscular HGB Conc 33.5 g/dl (32-36); Mean Corpuscular Hemoglobin 29.1 pg (26-34); Mean Corpuscular Volume 86.9 fl (80-100); Mean Platelet Volume 9.1 fl (7.4-10.4); Monocytes Absolute Auto 0.5 K/mm3 (0.1-0.6); Monocytes Percent Auto 9.2 % (2.6-8.5); Neutrophils Absolute Auto 3.1 K/mm3 (1.3-6.7); Platelet Count Result 225 k/mm3 (150-375); Red Blood Count 4.64 M/mm3 (4.2-5.4); Red Cell Distribution Width 13.2 % (11.5-14.5); White Blood Count 5.1 K/mm3 (4.5-10.0)
[2023-04-24] MEDS: ONDANSETRON INJ 4 MG/2 ML VIAL IV PUSH (12:01)
[2023-04-24] MEDS: KETOROLAC 30 MG/ML VIAL (*BKC) IV PUSH (12:02)
[2023-04-24] MEDS: fentaNYL CITRATE INJ (*CRX) 100 MCG/2 ML VIAL 50 MCG IV PUSH (12:03)
[2023-04-24 12:06] LABS: Alanine Aminotransferase 21 U/L (6-35); Albumin Level 4.1 g/dL (3.5-5.1); Alkaline Phosphatase 59 U/L (38-126); Anion Gap 6 mmol/L (8-16); Aspartate Amino Transferase 23 U/L (14-36); Bilirubin,Total 0.6 mg/dL (0.2-1.3); Blood Urea Nitrogen 12 mg/dL (7-17); Calcium 8.7 mg/dL (8.4-10.2); Carbon Dioxide 25 mmol/L (22-30); Chloride 104 mmol/L (98-107); Estimated CRCL calculation 89 ml/min; Estimated Glomerular Filt Rate > 60; Glucose 254 mg/dL (65-110); Potassium 3.2 mmol/L (3.4-5.0); Sodium 135 mmol/L (137-145)
[2023-04-24 12:09] VITALS: BP 126/72; PULSE 70; RESP 18; O2SAT 97
[2023-04-24 12:09] LABS: Prothrombin Time 13.1 Seconds (11.1-14.7)
[2023-04-24 12:10] LABS: Partial Thromboplastin Time 25.2 SECONDS (22.3-36.8)
--- NOTE | 2023-04-24 12:22 | ED.ABDPAIN ---
HPI - Abdominal Pain General Chief Complaint: Abdominal Pain Stated Complaint: BACK PAIN R SIDE PAIN Time Seen by Provider: 04/24/23 11:33 History of Present Illness HPI narrative: Pt presents with pain in right flank wrapping around to her RUQ this morning. Pt says it is worse with movement. Pt denies urinary symptoms or fever or vomiting. Related Data Home Medications Medication Instructions Recorded Confirmed lisinopril 20 1 tablet PO DAILY 09/10/20 02/22/23 mg-hydrochlorothiazide 25 mg tablet rosuvastatin 10 mg tablet (Crestor) 10 mg PO DAILY 09/10/20 02/22/23 aspirin 81 mg tablet,delayed 81 mg PO DAILY 12/17/20 02/22/23 release (Adult Low Dose Aspirin) cholecalciferol (vitamin D3) 10 10 mcg PO DAILY 12/17/20 02/22/23 mcg (400 unit) capsule metformin 500 mg tablet,extended 500 mg PO BID 12/17/20 02/22/23 release 24 hr vit C 250 mg-vit E 90 mg-zinc 40 1 tablet PO BID 06/23/22 02/22/23 mg-copper 1 [id number] capsule (PreserVision AREDS-2) omeprazole 20 mg capsule,delayed 20 mg PO DAILY 01/31/23 02/22/23 release Allergies Allergy/AdvReac Type Severity Reaction Status Date / Time Penicillins Allergy Unknown Rash Verified 04/24/23 11:02 Review of Systems Review of Systems: All systems reviewed & are unremarkable except as noted in HPI and below PMFSH Past Medical History Medical History (Updated 04/24/23 @ 14:09 by Taryn Marcial III, DO) GERD (gastroesophageal reflux disease) Hypertension Hyperthyroidism Hypertriglyceridemia Obesity Type 2 diabetes mellitus Surgical History Surgical History (Updated 02/21/23 @ 08:57 by REBA Hoyos) H/O: hysterectomy Hx laparoscopic cholecystectomy Robotic assisted lap sun on 02/07/23 Family History Family History Father Family history of malignant neoplasm Other Diabetes mellitus Family history of congestive heart failure Heart disease Social History Social History Smoking packs per day: 1 Smoking cigarettes per day: 20.0 Years smoked: 10 Smoking pack-years: 10.00 Smoking status: Former smoker Tobacco type: cigarettes Second hand tobacco smoke exposure: No Additional smoking assessment comments: PT STATES STOPPED SMOKING 2009~ Alcohol intake: never Substance use: never Substance use type: does not use Living arrangements: with family Occupation/Education: retired Spiritual care concerns: No Exam Const: General: healthy appearing Nutritional Appearance: well nourished Orientation/consciousness: patient oriented x3 Limitations: no limitations Chest: Chest palpation & inspection: tenderness (right lower lateral chest to palpation) Resp: Effort & Inspection: normal respiratory effort Auscultation: clear to auscultation bilaterally Cardio: Rate: regular rate Rhythm: regular rhythm GI: GI Palp: Yes Soft to palpation Auscultation: normal bowel sounds Back/Spine/Pelvis: Back: CVA tenderness Skin: General skin exam: normal color Rashes: no rashes Wounds: no wounds Neuro: General: patient oriented x3, moves all extremities and no focal motor deficits Speech: normal speech Extrem: General: normal to inspection and no clubbing, cyanosis or edema Psych: Mental Status: mental status grossly normal Affect: normal affect Attitude: cooperative Course Vital Signs Vital signs: Vital Signs Temperature 97.6 F 04/24/23 10:57 Pulse Rate 90 04/24/23 10:57 Respiratory Rate 20 04/24/23 10:57 Blood Pressure 149/60 H 04/24/23 10:57 Pulse Oximetry 96 04/24/23 10:57 Oxygen Delivery Room Air 04/24/23 10:57 Temperature 97.6 F 04/24/23 10:57 Pulse Rate 60 04/24/23 14:53 Respiratory Rate 17 04/24/23 14:53 Blood Pressure 141/66 H 04/24/23 14:53 Pulse Oximetry 99 04/24/23 14:53 Oxygen Delivery Room Air 04/24/23 10:57 MDM
[2023-04-24 13:58] LABS: Appearance Urine Clear (Clear); Bacteria Urine None Seen /hpf; Bilirubin Urine Negative (Negative); Blood Urine Negative (Negative); Color Urine Yellow (Yellow); Glucose Urine UA 2+ mg/dL (Negative); Ketones Urine Negative (Negative); Leukocyte Esterase Ur 1+ LEU/UL (Negative); Nitrate Urine Negative (Negative); Non Pathogenic Casts 0-2; Protein Urine Negative (Negative); RBC Urine 0-2 /hpf (0-2); Specific Grav Ur 1.022 (1.001-1.035); Squamous Epithelial Cell Urine None seen /hpf (Few); Urobilinogen Urine 0.2 mg/dL (<2.0); pH Urine 5.5 (5.0-9.0)
[2023-04-24 14:03] LABS: Add Urine Microscopic? YES
[2023-04-24 14:47] VITALS: BP 134/71; PULSE 78; RESP 20; O2SAT 100
[2023-04-24 14:53] VITALS: BP 141/66; PULSE 60; RESP 17; O2SAT 99
== END 2023-04-24 14:55 | disposition home or self-care (01) ==
PROVIDERS: Emergency Provider Emergency Medicine; PCP Emergency Medicine
DX: N39.0 Urinary tract infection, site not specified (principal); S29.011A Strain of muscle and tendon of front wall of thorax, initial encounter; I10 Essential (primary) hypertension; E11.9 Type 2 diabetes mellitus without complications; E66.9 Obesity, unspecified; Z68.32 Body mass index [BMI] 32.0-32.9, adult; E78.1 Pure hyperglyceridemia; E05.90 Thyrotoxicosis, unspecified without thyrotoxic crisis or storm; K21.9 Gastro-esophageal reflux disease without esophagitis; Z87.891 Personal history of nicotine dependence; Z90.710 Acquired absence of both cervix and uterus; Z90.49 Acquired absence of other specified parts of digestive tract; Z79.84 Long term (current) use of oral hypoglycemic drugs; Z79.82 Long term (current) use of aspirin; N20.0 Calculus of kidney; X58.XXXA Exposure to other specified factors, initial encounter
CPT/HCPCS: 36415; 74176; 80053; 81001; 85025; 85610; 85730; 87086; 87088; 96374; 96375; 99284; J1885; J2405; J3010

== ENCOUNTER → 2023-05-30 11:01 | Outpatient (CLI) | payer MEDICARE, SELFPAY ==
--- NOTE | ~2023-05-30 | MM_ITS ---
EXAMINATION: MM screening jazmyne BI w musa HISTORY: Screening mammogram TECHNIQUE: Craniocaudal and mediolateral oblique 3-D tomosynthesis images were obtained and synthetic 2-D images were generated. CAD analysis was submitted and interpreted. COMPARISON: 05/03, 10/19/2020 bilateral screening mammogram examinations BREAST PARENCHYMAL COMPOSITION: There are scattered areas of fibroglandular density. FINDINGS: There is an approximately 5 mm mass in the posterior mid inner left breast. Diagnostic lef t mammogram and left breast ultrasound examination are recommended. Otherwise no suspicious mass or architectural distortion, malignant calcification, skin thickening or retraction is detected. IMPRESSION: 1. 5 mm posterior mid inner left breast mass 2. Diagnostic left mammogram and left breast ultrasound examinations are recommended BIRADS CATEGORY 0: Incomplete; need additional imaging evaluation Reviewed, dictated and finalized at location A. IMPRESSION: 1. 5 mm posterior mid inner left breast mass 2. Diagnostic left mammogram and left breast ultrasound examinations are recomm ended BIRADS CATEGORY 0: Incomplete; need additional imaging evaluation
== END ==
PROVIDERS: PCP Emergency Medicine; Visit Provider Emergency Medicine
DX: Z12.31 Encounter for screening mammogram for malignant neoplasm of breast (principal); R92.8 Other abnormal and inconclusive findings on diagnostic imaging of breast
CPT/HCPCS: 77063; 77067

== ENCOUNTER 2023-06-15 08:37 | Outpatient (CLI) | payer MEDICARE, SELFPAY ==
--- NOTE | ~2023-06-15 | MMUS_ITS ---
EXAMINATION: MM diagnostic jazmyne LT w musa, US breast LT limited HISTORY: Follow-up left breast mass TECHNIQUE: Additional 3-D tomosynthesis images of the left breast were performed and synthetic 2-D im ages were generated. CAD analysis was submitted and interpreted. High resolution Limited left breast ultrasound was performed. COMPARISON: 05/30/2023 BREAST PARENCHYMAL COMPOSITION: Breast composed of scattered areas of fibroglandular density FINDINGS: MAMMOGRAPHIC FINDINGS: There is a persistent mass in the lower inner quadrant of the left breast, middle-posterior depth. Th ere are no suspicious calcifications or architectural distortion. ULTRASOUND: Limited left breast ultrasound: At 9:00, 9 cm from the nipple, there is an irregular shaped heterogen eous predominantly hypoechoic 6 x 5 x 4 mm mass with some angular margins, no significant posterior f eatures. There is internal vascularity. IMPRESSION: 1. Irregular shaped 6 mm left breast mass at 9:00, 9 cm from the nipple, corresponding to the mammogr aphic finding. 2. Ultrasound-guided left breast biopsy recommended. BI-RADS category 4, suspicious findings. Reviewed, dictated and finalized at location A. IMPRESSION: 1. Irregular shaped 6 mm left breast mass at 9:00, 9 cm from the nipple, corres ponding to the mammographic finding. 2. Ultrasound-guided left breast biopsy recommended. BI-RADS category 4, suspicious findings.
== END 2023-06-15 08:38 | disposition home or self-care (01) ==
LOC: CHSIMG 08:39
PROVIDERS: PCP Emergency Medicine; Visit Provider Emergency Medicine
DX: N63.42 Unspecified lump in left breast, subareolar (principal); R92.8 Other abnormal and inconclusive findings on diagnostic imaging of breast
CPT/HCPCS: 76642; 77061; 77065; G0279

== ENCOUNTER 2023-06-30 09:56 | Outpatient (CLI) | payer MEDICARE, SELFPAY ==
--- NOTE | ~2023-06-30 | MMUS_ITS ---
EXAMINATION: US breast biopsy LT w image, MM post biopsy invasive LT DATE: 06/30/2023 12:14 (accession [id number]), 06/30/2023 12:12 (accession [id number]) INDICATION: Indeterminate mass of the inner left breast at the 9:00 location. Ultrasound-guided core biopsy is requested to evaluate for malignancy. TECHNIQUE AND FINDINGS: The risks and potential benefits of the procedure were discussed with the patient including bleeding and infection. A time out was performed. The skin of the left breast was prepared and draped in usual sterile fashion. 1% lidocaine was used for superficial anesthesia. 1% lidocaine with epinephrine was used for deep anesthesia. A vacuum-assisted biopsy needle was advanced through to the outer edge of the region of interest from an inferomedial approach utilizing sonographic guidance. A total of five tissue core samples were ob tained through the lesion. A tissue marker clip was then placed at the biopsy site. Hemostasis was ac hieved. A sterile bandage was applied. The patient tolerated procedure well and there was no evidence of immediate complication. The patient was given verbal instructions to return to the Emergency Department in the event of severe breast pa in or rapid breast enlargement. A two view left breast mammogram was obtained to document tissue mare er clip placement. IMPRESSION: 1. Successful ultrasound-guided vacuum-assisted biopsy of left breast mass with tissue marker placeme nt. Reviewed, dictated and finalized at location A. IMPRESSION: 1. Successful ultrasound-guided vacuum-assisted biopsy of left breast mass with tissue marker placement.
== END 2023-06-30 09:57 | disposition home or self-care (01) ==
PROVIDERS: PCP Emergency Medicine; Visit Provider Emergency Medicine
DX: C50.912 Malignant neoplasm of unspecified site of left female breast (principal)
CPT/HCPCS: 19083; 88305; 88342; 88360; A4648

== ENCOUNTER → 2023-07-04 09:05 | Outpatient (CLI) | payer MEDICARE, SELFPAY ==
--- NOTE | ~2023-07-04 | US_ITS ---
Thyroid ultrasound. Clinical History: Thyroid nodule COMPARISON: 12/31/2020 Findings: Real-time sonography of the thyroid gland was performed. The right lobe measures 5.9 x 3.2 x 2.0 cm. The left lobe measures 4.7 x 2.5 x 2.0 cm. The isthmus is 3 mm in AP diameter. There is a 1.5 cm hyperechoic solid circumscribed nodule at the right upper pole. There is a 0.7 cm p eripherally calcified hyperechoic nodule at the right mid to lower pole. There is a 0.6 cm hypoechoic nodule centrally in the left mid pole. Impression: Overall, no significant change from prior exam.. Reviewed, dictated and finalized at location M. Impression: Overall, no significant change from prior exam..
== END ==
PROVIDERS: PCP Emergency Medicine; Visit Provider Internal Medicine Endocrinology, Diabetes & Metabolism
DX: E04.1 Nontoxic single thyroid nodule (principal)
CPT/HCPCS: 76536

== ENCOUNTER 2023-07-17 13:32 | Outpatient (CLI) | payer MEDICARE, SELFPAY ==
--- NOTE | ~2023-07-17 | MR_ITS ---
MR breast BI wo/w con 07/19/2023 09:52 CDT INDICATION: Left breast cancer. TECHNIQUE: MRI of the breasts perform using standard protocol pre-and post IV contrast with the follo wing sequences: Axial T2 STIR, axial T1, axial vibrant T1 with fat suppression precontrast and multip hasic postcontrast. 17 cc of MultiHance administered intravenously. COMPARISON: Mammogram and ultrasound dated 06/15/2023 FINDINGS: There are no abnormalities on the precontrast sequences. There is mild background parenchym al enhancement. No enhancing lesions following contrast administration. No areas of enhancement jett ting threshold criteria on CAD analysis. No evidence of signal abnormalities in the axillary or inte rnal mammary node distributions. LEFT BREAST: No signal abnormalities on precontrast sequences. There is mild background parenchymal enhancement. In the lower inner quadrants of the left breast, 9.5 cm posterior to the nipple there is an irregular shaped heterogeneous area of enhancement measuring 1.8 x 0.6 x 0.7 cm. There is an yasmany cent area of heterogeneous enhancement extending anteriorly and medially to the skin surface. There a re mildly prominent left axillary lymph nodes, although of which retain their normal fatty hilum. IMPRESSION: 1: Right breast: Negative. No evidence of malignancy. BI-RADS category 1. Recommend annual mammo graphy follow-up. 2: Left breast: Heterogeneous area of contrast enhancement lower inner quadrant of the left breast p osteriorly measuring 1.8 x 0.6 x 0.7 cm, likely corresponding to the area of patient's known malignan cy. Mildly prominent left axillary lymph nodes are present which retain normal fatty hilum. Cannot ex clude metastatic disease. BI-RADS Category 6, known malignancy. Reviewed, dictated and finalized at location B. IMPRESSION: 1: Right breast: Negative. No evidence of malignancy. BI-RADS category 1. Recommend annual mammography follow-up. 2: Left breast: Heterogeneous area of contrast enhancement lower inner quadran t of the left breast posteriorly measuring 1.8 x 0.6 x 0.7 cm, likely correspon ding to the area of patient's known malignancy. Mildly prominent left axillary lymph nodes are present which retain normal fatty hilum. Cannot exclude metasta tic disease. BI-RADS Category 6, known malignancy.
== END 2023-07-17 13:33 | disposition home or self-care (01) ==
PROVIDERS: PCP Emergency Medicine; Visit Provider Physician Assistant Surgical
DX: C50.912 Malignant neoplasm of unspecified site of left female breast (principal); R92.8 Other abnormal and inconclusive findings on diagnostic imaging of breast
CPT/HCPCS: 77049; A9577; C8908

== ENCOUNTER 2023-08-14 07:10 | Outpatient (CLI) | payer MEDICARE, SELFPAY ==
--- NOTE | ~2023-08-14 | MMUS_ITS ---
CORRECTED REPORT Exam description [facility] [place] 08/14/23 This report was recreated on 08/14/23. 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 The patient verbalized understanding and gave consent. Timeout procedure was performed. The skin was prepared with sterile Betadine. Sterile drapes were applied. 1% lidocaine local anesthetic was administered to the skin. 1% lidocaine with epinephrine was administered to the deeper soft tissues. From an inferomedial approach, the Magseed needle was introduced into the lesion using ultrasound guidance. Once position at the lesion was confirmed, the Magseed was deployed from the needle and the needle withdrawn. Sonographic images reveal the Magseed within the lesion. ML and CC mammographic images confirm Preethi adjacent to the biopsy marker and soft tissue mass in the inner mid left breast. COMPARISON: 05/30/2023 screening in 06/15/2023 diagnostic left mammogram IMPRESSION: Ultrasound-guided Magseed placement at 9:00 lesion 9 cm from nipple Reviewed, dictated and finalized at Location [facility]. Reviewed, dictated and finalized at location A. ARYNGOLOGY NURSE MTDD IMPRESSION: Ultrasound-guided Magseed placement at 9:00 lesion 9 cm from nipple
== END 2023-08-14 07:11 | disposition home or self-care (01) ==
PROVIDERS: PCP Emergency Medicine; Visit Provider Physician Assistant Surgical
DX: C50.912 Malignant neoplasm of unspecified site of left female breast (principal)
CPT/HCPCS: 19281; 19285; A4648

== ENCOUNTER 2023-08-25 08:50 | Outpatient (CLI) | payer MEDICARE, SELFPAY ==
[2023-08-25 09:35] LABS: Anion Gap 10 mmol/L (8-16); Blood Urea Nitrogen 14 mg/dL (7-17); Calcium 9.7 mg/dL (8.4-10.2); Carbon Dioxide 29 mmol/L (22-30); Chloride 103 mmol/L (98-107); Estimated Glomerular Filt Rate > 60; Glucose 120 mg/dL (65-110); Potassium 4.2 mmol/L (3.4-5.0); Sodium 142 mmol/L (137-145)
[2023-08-25 09:52] LABS: Partial Thromboplastin Time 24.1 SECONDS (22.3-36.8); Prothrombin Time 13.2 Seconds (11.1-14.7)
== END 2023-08-25 08:51 | disposition home or self-care (01) ==
LOC: ANHSURGERY 08:55
PROVIDERS: Anesthesiology; PCP Emergency Medicine; Visit Provider Surgery
DX: Z01.818 Encounter for other preprocedural examination (principal); K76.0 Fatty (change of) liver, not elsewhere classified; E11.9 Type 2 diabetes mellitus without complications
CPT/HCPCS: 36415; 80048; 85610; 85730

== ENCOUNTER 2023-08-29 00:15 | Day surgery (SDC) | payer MEDICARE, SELFPAY ==
[2023-08-23 12:14] VITALS: BMI 32.5
--- NOTE | 2023-08-23 12:22 | PC.NURSE ---
PRE-OP INSTRUCTIONS, PLEASE READ CAREFULLY Report to the Outpatient Waiting Room, entrance under the green pavilion located off [facility], at time _0600_ on date _08/29/23_. Planned Procedure Time: _0800_. Time changes happen often and if your time is changed the preop area will call you the afternoon before. - You and your visitor will be asked to self-screen and do not enter if you have any COVID symptoms. - A mask is optional within the hospital at this time. Patients may have clear liquids (water, carbonated beverages, clear teas, apple juice) until 3 hours prior to surgery (0430 AM) with a maximum of 20 ounces. - No food from midnight until time of surgery - Infants may have breast milk until 4 hours before surgery, formula 6 hours prior to surgery. - Children will be allowed to drink immediately following surgery. If applicable, please bring a bottle or sippy cup to assist with drinking. Juice, water, soda, and popsicles are readily available. For infants on formula, please bring formula the day of surgery. Pacifiers are allowed. Take the following medications with a SIP of water the morning of surgery: _METHIMAZOLE_ DO NOT STOP ANY OF YOUR OTHER PRESCRIPTION MEDICATIONS PRIOR TO SURGERY ?EXCEPT THE FOLLOWING Medications to discontinue per ANESTHESIA - _PRESERVISION AREDS 2 & SUPPLEMENTS 3 DAYS PRIOR TO SURGERY, Date to take last dose 08/25/23_ Please no make-up, nail lao, hairspray, perfume, deodorant, or body powder the day of surgery. No jewelry (including any body piercings) or valuables the day of surgery, leave them at home. Please take a shower or bath the night before, or the morning of, surgery with an antibacterial soap. Wear comfortable, loose fitting clothing. Children are encouraged to wear pajamas. - Jewelry must be removed prior to entering the operating room. Rings and piercings that are not removed may be cut off. - The hospital will not accept responsibility for valuables. - Please leave all valuables, including medications, at home the day of surgery. If you are going home after surgery, a licensed substitute bus driver must drive you home. - NO public transportation without another adult if you receive anesthesia. - We recommend that an adult stay with you for 24 hours following discharge. - We also recommend that you do not drive, make important decision, drink alcoholic beverages, or take any drugs that were not prescribed by your health care provider for at least 24 hours after your discharge time. For Pediatric surgeries, we recommend two adults accompany the child home. Follow any additional instructions given to you from your surgeon. If you or anyone in your household have experienced Covid symptoms in the past week, please notify your surgeon or the nurse liaison at the phone number below for possible testing. Telephone instructions given to _PATIENT_and asked if any additional questions and then verbalized understanding. Patient advised to call surgeon office or pre surgery nurse liaison [phone] if any additional questions.
[2023-08-29] VITALS (12 sets, daily range): BP systolic 121–157; BP diastolic 49–87; PULSE 72–87; RESP 13–17; TEMP 36.3–36.4; O2SAT 93–100
--- NOTE | ~2023-08-29 | MM_ITS ---
EXAMINATION: [id number]_[id number]_MG INDICATION: Left lumpectomy with magseed localization, left breast cancer TECHNIQUE: One specimen radiograph is submitted for review. COMPARISON: None available FINDINGS: The biopsy marker and magseed are contained within the specimen radiograph. IMPRESSION: 1. Biopsy marker and magseed within the specimen radiograph. These findings were communicated to Dr. Tonie Licona MD. Reviewed, dictated and finalized at location A. PRODUCTION IMPRESSION: 1. Biopsy marker and magseed within the specimen radiograph. These findings wer e communicated to Dr. Tonie Licona MD.
--- NOTE | ~2023-08-29 | NM_ITS ---
EXAMINATION: NM sentinel node inject only INDICATION: Left breast cancer TECHNIQUE: 10.091 Tc 99m Lymphoseek were injected in 4 aliquots in the upper outer quadrant of the br east near the areola. No images were obtained. IMPRESSION: 1. Status post left breast sentinel lymph node radiopharmaceutical injection. Reviewed, dictated and finalized at location A. STOCK BLANK [employer]
[2023-08-29] MEDS: ACETAMINOPHEN 500 MG TABLET 1000 MG PO (06:18)
[2023-08-29] MEDS: LIDOCAINE/PRILOCAINE CREAM 2.5-2.5% TUBE 1 EACH TOPICAL (06:21)
[2023-08-29] MEDS: LACTATED RINGERS 1,000 ML 30 ML IV CONT ×2 (06:32→11:40)
[2023-08-29 06:37] LABS: Glucose Point of Care 126 mg/dl (65-105)
--- NOTE | 2023-08-29 06:46 | WPDANESEPPF ---
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 Patient Data Age: 68 Gender: F Height: 1.66 m Weight: 87.8 kg Allergies Allergy/AdvReac Type Severity Reaction Status Date / Time Penicillins Allergy Unknown Rash Verified 08/29/23 05:56 Home Medications Medication Instructions Recorded Confirmed Type lisinopril 20 1 tablet PO DAILY 09/10/20 08/23/23 History mg-hydrochlorothiazide 25 mg tablet rosuvastatin 10 mg tablet (Crestor) 10 mg PO DAILY 09/10/20 08/23/23 History aspirin 81 mg tablet,delayed 81 mg PO DAILY 12/17/20 08/23/23 History release (Adult Low Dose Aspirin) cholecalciferol (vitamin D3) 10 10 mcg PO DAILY 12/17/20 08/23/23 History mcg (400 unit) capsule metformin 500 mg tablet,extended 500 mg PO BID 12/17/20 08/23/23 History release 24 hr vit C 250 mg-vit E 90 mg-zinc 40 1 tablet PO BID 06/23/22 08/23/23 History mg-copper 1 [id number] capsule (PreserVision AREDS-2) omeprazole 20 mg capsule,delayed 20 mg PO DAILY 01/31/23 08/23/23 History release methimazole 5 mg tablet See Rx Instructions .Route 06/28/23 08/23/23 Rx .COMPLEX #54 tabs biotin 5,000 mcg disintegrating 5,000 mcg PO DAILY 07/26/23 08/23/23 History tablet Laboratory Tests 08/29/23 06:34 POC Capillary Glucose 126 H mg/dl (65-105) Patient hx anesthesia problems: none Family hx anesthesia problems: none Results Review: All pre-operative results and documents have been reviewed as part of the pre-operative evaluation. [facility] Past Medical History Medical History GERD (gastroesophageal reflux disease) Hypertension Hyperthyroidism Hypertriglyceridemia Obesity Type 2 diabetes mellitus Surgical History Surgical History H/O: hysterectomy Hx laparoscopic cholecystectomy Robotic assisted lap sun on 02/07/23 Family History Family History Father Family history of malignant neoplasm Other Diabetes mellitus Family history of congestive heart failure Heart disease Social History Social History Smoking packs per day: 1 Smoking cigarettes per day: 20.0 Years smoked: 28 Smoking pack-years: 28.00 Smoking status: Former smoker Tobacco type: cigarettes Second hand tobacco smoke exposure: No Additional smoking assessment comments: PT STATES STOPPED SMOKING 2009~ Alcohol intake: never Substance use: never Substance use type: does not use Lack of Transportation: No Lack of Food: Never True Current Housing: I Have Housing Concerned About Future Housing: No Difficulty Paying Gas/Electric Bills: No Difficulty Paying for Meds: No Currently Unemployed: Decline to Answer Education: Decline to Answer Difficulty w/ Childcare or Family Care: Decline to Answer Living arrangements: with family Occupation/Education: retired Spiritual care concerns: No Anes - Eval Final PreProcedure Day of Procedure 08/29/23 06:46 Patient weight: obese Heart: regular rate and rhythm Lungs: clear to auscultation Airway: Mallampati scale class III Neurological: alert and oriented Last oral intake: >/= 8 hours ASA classification: III Emergent: no Anesthetic plan: proceed Anesthesia type and monitoring: general ETT and standard monitoring Results Review: All pre-operative results and documents have been reviewed as part of the pre-operative evaluation. Informed Consent: The patient's anesthetic
--- NOTE | 2023-08-29 07:11 | WPDHPUPDATE1 ---
History and Physical Update Update Date/Time: 08/29/23 07:11 History and Physical has been reviewed, including an updated exam of the patient. There are NO changes in the patient's condition. Risks, benefits, and alternatives have been discussed and questions answered. Patient agrees to proceed with procedure.
--- NOTE | 2023-08-29 07:34 | WPDHPUPDATE1 ---
History and Physical Update Update Date/Time: 08/29/23 07:34 Patient seen and examined in pre-operative holding area. No interval change in medical history or symptoms. Patient remembers previous discussion of benefits and alternatives to procedure. Continues to desire to proceed with left oncoplastic reduction and symmetrizing right breast reduction at time of left lumpectomy with Dr. Licona. I reviewed the risks including but not limited to bleeding ,infection, asymmetry, undesireable cosmetic appearance, partial/total skin/nipple loss, no change or worsening of symptoms, change in sensation. I discussed the possible use of assistants and their level of participation in the case. Patient stated understanding and signed the consent form wishing to proceed
--- NOTE | 2023-08-29 07:35 | W.PM.PROC2 ---
Procedure Note - Detailed Date of Procedure 08/29/23 Pre-op Diagnosis malig neoplasm left breast Post-op Diagnosis Same Procedure Performed left oncoplastic reduction and symmetrizing right reduction Surgeon Vikas Sebastian MD Aircraft Engine Installer amelia bourne pa-c Anesthesia General Description of Procedure INFORMED CONSENT: The patient was seen and examined and marked in the pre-op area.? The patient signed the consent form. PROCEDURE IN DETAIL:The patient taken back to OR and placed on the table in supine position. Time out performed with anesthesia, surgeons and staff agreeing on patient's name site and surgery to be performed SCDs were placed on the lower extremities and inflated. After general anesthesia was administered the breasts were prepped and draped in sterile fashion. After Dr. Licona completed SLNBx on the left, I took my attention to the left breast. I modified standard inferior pedicle campa pattern reduction to include extra skin over specimen for margins as requested by breast surgeon. This resulted in necessity to also deviate the IMF incision pattern. I used a lap pad and mariah clamp to create a breast tourniquet. I used the 35mm nipple sizer to circumscribe the NAC and proceeded with de-epithelializing a 9cm inferior pedicle with 15 blade scalpel. I made my other skin incisions. Using bovie I elevated skin flaps in brina's plane to expose the entire breast down to the chest wall though thinner flaps were utilized around the area of specimen. Dr. Licona then proceeded with resection of her lumpectomy specimen with my assistance. I irrigated with normal saline. I shaped the remaining breast tissue with 2-0 vicryl suture and plicated the pedicle. This was more difficult than a typical breast reduction given the oncoplastic nature and medial location of the specimen resected by Dr. Licona. I was thus required to perform extra mobilization and plication/shaping of the pedicle to achieve a reasonable and symmetric breast shape and not leave the patient deficient of medial breast volume. I irrigated with NS and hemostasis with bovie. I closed the T-junction with 2-0 prolene and then 3-0 vicryl and 4-0 monocryl for closure. The nipple was brought out 5cm above IMF at breast midline and most prominent portion of the breast and secured with 3-0 vicryl and 4-0 monocryl . The nipple appeared viable with good cap refill.The lumpectomy specimen weight 162.9grams and urther resection o fleft berast tissue yielded total resection weight of 308grams I next took my attention to the right breast where I used the breast tourniquet, 35mm nipple sizer, de-epithelialized a 9cm inferior pedicle, raised skin flaps with zac. I proceeded with resection of a similar amount of right breast tissue to match the left breast. This was 305.3grams. I plicated the pedicle with 2-0 vicryl. There was reasonable size and shape compared to left breast. I irrigated with NS and hemostasis with bovie. I closed t-junction with 2-0 prolene. The nipple was brought out 5cm from IMF at most prominent portion of breast at breast midline and closed with 3-0 vicryl dermis and 4-0 monocryl. The nipple appeared viable with good cap refill. I injected 25cc 1%lido with epi and 0.5%marcaine plain along IMFs and anterior axillary line A dressing of mastisol, steri-strips, 4x4, abd, surgibra was applied Patient awaken from anesthesia and transferred to recovery in stable condition. Complications - none EBL- 50cc Disposition - home in stable condition Amelia Bourne PA-C was essential throughout the procedure for positioning, retraction, hemostasis, closure and dressing placement [facility] Billing Surgery - Charge Forward: Surgery Billing ([id number]. same codes for amelia bourne but add modifer and delete modifier 80)
[2023-08-29] MEDS: ceFAZolin 2 GM/D5W 50 ML 2 GM/50 ML BAG IVPB (08:13)
[2023-08-29] MEDS: LIDO 1%/EPINEPHRINE 1:100,000 50 ML VIAL 30 ML INFILTRATE (09:01)
--- NOTE | 2023-08-29 09:25 | SUR.OPER ---
preop noted broken left upper mid tooth anesthesia aware and assessed.
--- NOTE | 2023-08-29 10:32 | SUR.OPER ---
radiology received lumpectomy specimen image and verified marker Dr Licona informed and acknowledged.
--- NOTE | 2023-08-29 10:34 | W.PM.PROC2 ---
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 ER positive, KS positive, HER2 negative, Ki-67 less than 5%, who presents for preoperative visit.? Patient had a preoperative MRI that showed? no other evidence of disease.? Patient is scheduled for a left breast lumpectomy with Mag seed localization and left sentinel lymph node biopsy as well as the right breast reduction by Plastic surgery next week.? Patient has been seen by Oncology as well as radiation and she would like to proceed as planned.? Risks of the procedure were discussed with the patient which included but not limited to risk of bleeding, infection, positive margin, possible need for additional procedures in the future, wound healing problems, scar, pain, asymmetry, as well as the risk of anesthesia.? All questions were answered patient agreed to proceed.? Description of Procedure Patient was identified in the pre-operative area and brought to the OR suite. She underwent tumor localization previously by IR with magseed placement as well as injection of lymphoseek radiotracer by Nuclear Medicine. She was laid supine in the operating table and sequential compression devices were applied. General anesthesia was induced without difficulties. The left chest and axillary regions were prepped and draped in a sterile fashion. Dilated methylene blue (50%) was injected into the perioareolar sudermal region as a second tracer. The gamma probe was used to identify the area with highest radioactivity in the axilla, and a small incision was made overlying this area. Dissection was carried down through the subcutaneous tissue into the clavipectoral fascia, which was incised. The probe was again used to scan this area, and a hot and blue node was identified. This was carefully grasped and excised using the Ligasure device. The gamma probe was used to obtain the sentinel lymph node #1 count of 2500. The gamma probe was again used to identify any additional radioactive lymph nodes that 10% or greater count compared to the sentinel node. The additional node counts were as following: sentinel node #2 was 60, and sentinel lymph node #3 was 370. Once this performed, the lymph nodes were sent to pathology as permanent specimens. The probe was used to verify that no additional areas of significant radioactivity in the axilla were present, and this was confirmed. The wound was irrigated with saline and hemostasis was assured. The deep dermal layer was closed with 3-0 vicryl followed by 4-0 monocryl for the skin. Dermabond was applied followed by a sterile dressing. Attention was then turned to the breast. The magnetic probe was used to identify the area where the magseed was placed and the incision was incorporated into the campa pattern breast reduction incision, previously marked by Dr Sebastian. After Dr Sebastian had raised the superior flaps, I proceeded to identify the tumor palpation and the sentimag probe. A rim of normal breast tissue was excised along with the tumor as our lumpectomy specimen. Once the specimen was completely excised, it was oriented using surgical pain as the following: green anterior, blue inferior, red superior, orange lateral, yellow medial, and black posterior. The specimen was placed in the faxitron for radiographic confirmation of Tumor, biopsy marker and magseed within the specimen. Once the radiographic confirmation was received, the wound was irrigated with saline and hemostasis was assured. The case was again turned over to D
[2023-08-29 11:55] LABS: Glucose Point of Care 132 mg/dl (65-105)
[2023-08-29] MEDS: fentaNYL CITRATE INJ (*CRX) 100 MCG/2 ML VIAL 25 MCG IV PUSH ×7 (12:08→14:12)
[2023-08-29] MEDS: ONDANSETRON INJ 4 MG/2 ML VIAL IV PUSH (13:15)
[2023-08-29] MEDS: oxyCODONE HCL (*CRX) 5 MG TAB IR PO (13:30)
== END 2023-08-29 15:18 | disposition home or self-care (01) ==
PROVIDERS: Plastic Surgery; PCP Emergency Medicine; Visit Provider Surgery
PROC: (CPT 19301; principal; 2023-08-29 08:00)
PROC: (CPT 19318; 2023-08-29 08:00)
DX: C50.112 Malignant neoplasm of central portion of left female breast (principal); Z17.0 Estrogen receptor positive status [ER+]; I10 Essential (primary) hypertension; E05.90 Thyrotoxicosis, unspecified without thyrotoxic crisis or storm; K21.9 Gastro-esophageal reflux disease without esophagitis; E11.9 Type 2 diabetes mellitus without complications; E78.1 Pure hyperglyceridemia; E66.9 Obesity, unspecified; Z68.31 Body mass index [BMI] 31.0-31.9, adult; Z79.82 Long term (current) use of aspirin; Z87.891 Personal history of nicotine dependence
CPT/HCPCS: 19301; 38525; 19318; 38792; 76098; 82948; 88305; 88307; A9270; A9520; C1713; J0330; J0690; J1100; J1170; J2250; J2405; J2704; J3010; J7120; Q9968

== ENCOUNTER 2024-02-29 12:29 | Outpatient (CLI) | payer MEDICARE, SELFPAY ==
--- NOTE | ~2024-02-29 | MM_ITS ---
EXAMINATION: MM diagnostic jazmyne BI w musa HISTORY: History of left breast cancer status post bilateral breast reconstruction surgery TECHNIQUE: Additional 3-D tomosynthesis images of the breasts were performed and synthetic 2-D images were generated. CAD analysis was submitted and interpreted. COMPARISON: Comparison to multiple prior studies sequentially, with oldest reviewed study dated 05/2022. BREAST PARENCHYMAL COMPOSITION: Not dense: There are scattered areas of fibroglandular density. FINDINGS: There are changes of bilateral breast reduction/reconstruction surgery. There are no suspic ious masses, calcifications or architectural distortion in either breast to suggest malignancy. IMPRESSION: 1. No mammographic evidence for malignancy in either breast. 2. Routine yearly screening mammogram and regular clinical breast examination are recommended. BI-RADS Category 1: Negative Reviewed, dictated and finalized at location B. IMPRESSION: 1. No mammographic evidence for malignancy in either breast. 2. Routine yearly screening mammogram and regular clinical breast examination a re recommended. BI-RADS Category 1: Negative
== END 2024-02-29 12:30 | disposition home or self-care (01) ==
PROVIDERS: PCP Emergency Medicine; Visit Provider Physician Assistant Surgical
DX: R92.8 Other abnormal and inconclusive findings on diagnostic imaging of breast (principal); C50.912 Malignant neoplasm of unspecified site of left female breast
CPT/HCPCS: 77062; 77066; G0279

== ENCOUNTER 2024-05-02 10:26 | Outpatient (CLI) | payer MEDICARE, SELFPAY ==
--- NOTE | ~2024-05-02 | DEXA_ITS ---
Bone Density Report Name: KEYSHA RUANO Age: 68 Sex: Female Ethnicity: White Date of : 1955 Indication: postmenopausal; screening for osteoporosis; history of glucocorticoids; cancer; hysterectomy; Referring Provider: KOFFI ANNE Study: Bone densitometry was performed. Exam Date: May 02, 2024 Accession number: [id number] Bone Density: Region BMD T-score Z-score Classification AP Spine(L1-L4) 1.068 0.2 2.1 Normal Femoral Neck (Left) 0.813 -0.3 1.3 Normal Total Hip (Left) 0.926 -0.1 1.2 Normal Femoral Neck (Right) 0.796 -0.5 1.2 Normal Total Hip (Right) 0.971 0.2 1.6 Normal Total Hip Mean 0.948 0.1 1.4 Normal World Health Organization criteria for BMD impression classify patients as: Normal (T-score at or above -1.0), Osteopenia (T-score between -1.0 and -2.5), or Osteoporosis (T-score at or below -2.5). 10-year Fracture Risk: FRAX not reported because: All T-scores for Spine Total, Hip Total, Femoral Neck at or above -1.0 Clinical Information Provided by Patient: Has taken Glucocorticoids Has used the following medications: Vitamin D Has the following medical conditions: Cancer, Hysterectomy Patient maximum height was 66 Menopause Age: 58 No regular weight bearing exercise Drinks caffeinated beverages Onset of menses at age 15 Number of children 3 Impression: The patient has normal bone mass. The patient has risk factors, including: history of glucocorticoid therapy. Discussion: BONE DENSITY IS ABOVE THE MINIMUM DESIRABLE LEVEL AT ALL SKELETAL SITES TESTED. This patient?s bone mineral density is above the minimum desirable level (T-score -1.0 or better) at all sites measured. The patient should follow a healthful lifestyle (good nutrition with adequate calcium and vitamin D, and appropriate weight-bearing exercise). Follow-Up: Consider repeating this study in 5 years or sooner if there is some new clinical indication. Reported by: DONNIE on 05/02/2024 11:04:00 AM. Reviewed, dictated and finalized at location A. [facility]
== END 2024-05-02 10:27 | disposition home or self-care (01) ==
LOC: ANHIMG 10:27
PROVIDERS: PCP Emergency Medicine; Visit Provider Internal Medicine Hematology & Oncology
DX: M85.89 Other specified disorders of bone density and structure, multiple sites (principal); Z78.0 Asymptomatic menopausal state; Z13.820 Encounter for screening for osteoporosis
CPT/HCPCS: 77080

== ENCOUNTER 2025-01-23 00:47 | Day surgery (SDC) | payer MEDICARE, SELFPAY ==
[2025-01-13 12:29] VITALS: BMI 30.7
--- NOTE | 2025-01-22 14:32 | WPDANESEPPF ---
Anes - Initial Pre Proc Eval Procedure: Operation Date: 01/23/25 11:30 Proposed Procedures p Screening Colonoscopy - Francis Brewer MD Date/Time: 01/22/25 14:32 Surgeon: Francis Brewer MD Pre Op Diagnosis: Hx of polyps Patient Data Age: 69 Gender: F Height: 1.68 m Weight: 86.5 kg Allergies Allergy/AdvReac Type Severity Reaction Status Date / Time Penicillins Allergy Unknown Rash Verified 01/23/25 10:09 Home Medications ?Medication ?Instructions ?Recorded ?Confirmed ?Type lisinopril 20 1 tablet PO DAILY 09/10/20 01/23/25 History mg-hydrochlorothiazide 25 mg tablet aspirin 81 mg tablet,delayed 81 mg PO DAILY 12/17/20 01/23/25 History release (Adult Low Dose Aspirin) metformin 500 mg tablet,extended 500 mg PO BID 12/17/20 01/23/25 History release 24 hr biotin 5,000 mcg disintegrating 5,000 mcg PO DAILY 07/26/23 01/23/25 History tablet anastrozole 1 mg tablet 1 mg PO DAILY 05/07/24 01/23/25 History methimazole 5 mg tablet See Rx Instructions .Route 11/14/24 01/23/25 Rx .COMPLEX #54 tabs docusate sodium 100 mg capsule 100 mg PO DAILY #90 caps 11/26/24 01/23/25 Rx (Colace) rosuvastatin 20 mg tablet 20 mg PO DAILY 11/26/24 01/23/25 History omega-3 fatty acids 2,000 mg PO BID 01/13/25 01/23/25 History vit C 250 mg-vit E 200 unit-zinc 1 cap PO BID-TID 01/13/25 01/23/25 History ox 12.5 nz-[id number]-wcdmha-zeax capsule Patient hx anesthesia problems: none Family hx anesthesia problems: none Results Review: All pre-operative results and documents have been reviewed as part of the pre-operative evaluation. [facility] Past Medical History Medical History GERD (gastroesophageal reflux disease) Obesity Type 2 diabetes mellitus Hypertension Hypertriglyceridemia Hyperthyroidism Surgical History Surgical History Hx laparoscopic cholecystectomy Robotic assisted lap sun on 02/07/23 H/O: hysterectomy Family History Family History Father Family history of malignant neoplasm Other Diabetes mellitus Family history of congestive heart failure Heart disease Social History Social History Smoking packs per day: 1 Smoking cigarettes per day: 20.0 Years smoked: 28 Smoking pack-years: 28.00 Smoking status: Former smoker Tobacco type: cigarettes Second hand tobacco smoke exposure: No Additional smoking assessment comments: PT STATES STOPPED SMOKING 2009~ Alcohol intake: never Substance use: never Substance use type: does not use Lack of Transportation: No Lack of Food: Never True Current Housing: I Have Housing Concerned About Future Housing: No Difficulty Paying Gas/Electric Bills: No Difficulty Paying for Meds: No Currently Unemployed: Decline to Answer Education: Decline to Answer Difficulty w/ Childcare or Family Care: Decline to Answer Living arrangements: with family Occupation/Education: retired Spiritual care concerns: No Anes - Eval Final PreProcedure Day of Procedure 01/22/25 14:32 Patient weight: obese Heart: regular rate and rhythm Lungs: clear to auscultation Airway: Mallampati scale class II Neurological: alert and oriented Last oral intake: >/= 8 hours ASA classification: III Emergent: no Anesthetic plan: proceed Anesthesia type and monitoring: general GIVS and standard monitoring Results Review: All pre-operative results and documents have been reviewed as part of the pre-operative evaluation. Informed Consent: The patient's anesthetic plan and its attendant risks and benefits were discussed with the patient/family/POA. Questions were solicited and answers provided to the satisfaction of the patient/family/POA.
--- OUTSIDE RECORDS SUMMARY | 2025-01-23 00:50 | XMS_ITS | Clinical Summary ---
Author Organization [facility] Address [address] [address] Care Team Providers Care Health Safety Specialist Name Role Phone Azael Whittaker MD Primary Care Provider [phone] Smiley Wright MD Unavailable [phone] Yessy Espinoza MD Unavailable [phone] Barb Tanner OD Unavailable [phone] Source Comments [facility],non-owned Affiliates and Associated Physician Practices is amultiple site organization consisting of ambulatory clinics and hospital sitesin [place], [place], [place] and [place]. This disclosure is being madepursuant to the Care Everywhere program and may not contain all information available regarding this patient. Last updated 18.[facility] Allergies Active Allergy Reactions Criticality Noted Date Comments Penicillins Rash Medium 07/15/2020 Medications * Be aware that medications may not be up to date on this document. Alwaysverify current medications with the patient. metFORMIN (GLUCOPHAGE) 500 MG tablet TAKE 1 TABLET BY MOUTH TWICE DAILY WITH MORNING MEAL AND WITH EVENING MEALS 03/02/2021 Active methIMAzole (TAPAZOLE) 5 MG tablet TAKE 1 TABLET BY MOUTH 4 DAYS A WEEK 03/20/2021 Active rosuvastatin (CRESTOR) 20 MG tablet Take 20 mg by mouth once daily 03/14/2021 Active lisinopril-hydr oCHLOROthiazide (PRINZIDE; ZESTORETIC) 20-25 MG tablet Take 1 tablet by mouth once daily 03/26/2021 Active aspirin EC (ECOTRIN) 81 MG tablet Take 81 mg by mouth once daily Active Multiple Vitamins-Minera ls (PRESERVISION AREDS 2+MULTI VIT PO) Active Active Problems Problem Noted Date Diagnosed Date Closed Colles' fracture 04/14/2021 Essential hypertension 04/14/2021 Fracture of forearm 04/14/2021 Hemorrhoids 04/14/2021 Hyperthyroidism 04/14/2021 Obesity 04/14/2021 Polyp of colon 04/14/2021 Renal cyst, left 07/16/2020 Pneumonia due to COVID-19 virus 07/15/2020 Projectile vomiting with nausea 07/15/2020 Ex-smoker 10/31/2017 Well adult health check 10/31/2017 Hypertriglyceridemia 02/28/2017 Resolved Problems Problem Noted Date Diagnosed Date Resolved Date Acute diarrhea 07/15/2020 05/12/2021 Immunizations Immunization Administration Dates Next Due Covid Pfizer primary monoval ent 12+ yr 0.3mL Purple cap 01/08/2021,12/18/2020 DTaP VACCINE IM (6wk-6yrs) 02/15/2010 FLU VACCINE TRI IIV3 SPLIT PF IM (FLUVIRIN) 05/2015 INFLUENZA VACCINE, HIGH-DOSE , QUADR. (FLUZONE HIGH-DOSE QUADRIVALENT; 65Y+), 0.7 ML (HD-IIV4) 07/24/2011 INFLUENZA VACCINE, QUADR. (F LUZONE; FLULAVAL; FLUARIX; AFLURIA QUADRIVALENT; 6MO+), 0.5 ML (IIV4) 11/06/2019,07/09/2018,10/31/2017 Social History Tobacco Use Types Packs/Day Years Used Date Smoking Tobacco: Never Assessed Comments Unknown Sex and Gender Information Value Date Recorded Sex Assigned at Not on file Legal Sex Female 9:11 AM CDT Gender Identity Not on file Sexual Orientation Not on file Plan of Treatment Health Maintenance Due Date Last Done Comments BONE DENSITY TESTING 1956 COLOGUARD (AGES 45-75) - COLON CA SCREENING 1956 COLON MONITORING 1956 COLONOSCOPY - COLON CA SCREENING 1956 CT COLONOGRAPHY - COLON CA SCREENING 1956 Colorectal Cancer Screening 1956 FIT - COLON CA SCREENING 1956 FLEX SIG - COLON CA SCREENING 1956 MAMMOGRAM 1956 MEDICARE AWV 12 MONTHS 1956 HEPATITIS C SCREENING 08/18/1974 PNEUMOCOCCAL VACCINE 50+ (1 of 1 - PCV) 2006 ZOSTER VACCINE (1 of 2) 2006 DTAP/TDAP/TD VACCINES (2 - Tdap) 02/16/2020 02/15/2010 COVID-19 VACCINE (3 - season) 2024 01/08/2021, 12/18/2020 DEPRESSION SCREENING 09/25/2024 INFLUENZA VACCINE (Season Ended) 2025 11/06/2019, 07/09/2018, 10/31/2017, Additional history exists Respiratory Syncytial Virus (RSV) Vaccine Pt: or over 60 yrs (1 - 1-dose 75+ series) 2031 HEPATITIS B VACCINE Aged Out No longe r eligible based on patient's age to complete this topic HIB VACCINE Aged Out No longer eligi ble based on patient's age to complete this topic HPV VACCINE Aged Out No longer eligi ble based on patient's age to complete this topic MENINGOCOCCAL (Group B) VACCINE SHARED DECISION-MAKING Aged Out No longer eligible based on patient's age to complete this topic MENINGOCOCCAL GROUPS A/C/Y/W VACCINE Aged Out No longer eligible based on patient's age to complete this topic Insurance [place] [employer] AET MEDICARE [place] [address] Care Teams Health Safety Specialist Relationship Specialty Start Date End Date Azael Whittaker MD PCP - General Family Medicine 04/14/21 Smiley Wright MD [address] [place] [address] Physician Endocrinology 04/14/21 Yessy Espinoza MD [address] [facility] [place] [address] Physician Ophthalmology 04/16/21 Barb Tanner OD [address] [place] [address] Research Electrician Research Electrician 04/16/21
--- OUTSIDE RECORDS SUMMARY | 2025-01-23 00:50 | XMS_ITS | Continuity of Care Document ---
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 Name Role Phone Azael Whittaker MD Unavailable Unavailable Allergies, Adverse Reactions, Alerts Substance Reaction Status Criticality PENICILLIN Active No Information Medications Medication Instructions Dosage Effective Dates (start - stop) Status Comments lisinopril 20 mg-hydrochlorothiazi de 25 mg tablet take 1 tablet by oral route every day 1.00 tablet - Active Crestor 20 mg tablet take 1 tablet by oral route every day 20 MG - Active metformin 500 mg tablet take 1 tablet by oral route 2 times every day with morning and evening meals 500 MG - Active anastrozole 1 mg tablet take 1 tablet by oral route every day 1 MG - Active methimazole 5 mg tablet take 1 Tablet by oral route every day 5 MG - Active Procedures Procedure Date PPPS, subseq visit OFFICE/OUTPATIENT VISIT, EST Medicare Addendum OFFICE/OUTPATIENT VISIT, EST Medicare Addendum PPPS, subseq visit OFFICE/OUTPATIENT VISIT, EST OFFICE/OUTPATIENT VISIT, EST OFFICE/OUTPATIENT VISIT, EST OFFICE/OUTPATIENT VISIT, EST OFFICE/OUTPATIENT VISIT, EST OFFICE/OUTPATIENT VISIT, EST OFFICE/OUTPATIENT VISIT, EST OFFICE/OUTPATIENT VISIT, EST OFFICE/OUTPATIENT VISIT, EST PPPS, initial visit OFFICE/OUTPATIENT VISIT, EST OFFICE/OUTPATIENT VISIT, EST OFFICE/OUTPATIENT VISIT, EST Initial preventive exam OFFICE/OUTPATIENT VISIT, EST OFFICE/OUTPATIENT VISIT, EST OFFICE/OUTPATIENT VISIT, EST OFFICE/OUTPATIENT VISIT, EST OFFICE/OUTPATIENT VISIT, EST OFFICE/OUTPATIENT VISIT, EST OFFICE/OUTPATIENT VISIT, EST PREV VISIT, NEW, AGE 40-64 OFFICE/OUTPATIENT VISIT, NEW Advance Directives Directive Yes / No Effective Date File Name No Information Encounters Encounter Description Practice Location Reason(s) For Visit Diagnoses Date Provider Providers Copied on Encounter [facility], [address] [place], [address], [place] tel:[phone] [facility] physical (chief complaint) Encounter for general adult medical examination without abnormal findings 5 Panfilo Addison. [address] [place], [address] , [place]. [phone] OFFICE/OUTPA TIENT VISIT, [facility], [address] [place], [address], [place] tel:[phone] [facility] GERD1 (chief complaint) bone1 (chief complaint) breast CA1 (chief complaint) HTN (chief complaint) GERD w/o esophagitisEssentia l (primary) hypertensionType 2 diabetes mellitus without complicationsThyroi d noduleOther specified disorder of bone densityMalignant neoplasm of unspecified site of left female breast 4 Panfilo Addison. [address] [place], [address] , [place]. tel:[phone] OFFICE/OUTPA TIENT VISIT, [facility], [address] [place] [place], [address], [place] tel:[phone] [facility] DM (chief complaint) phos (chief complaint) HLP (chief complaint) HTN (chief complaint) GERD w/o esophagitisMixed hyperlipidemiaEssen tial (primary) hypertensionType 2 diabetes mellitus without complicationsMalign ant neoplasm of unspecified site of left female breastOther disorders of phosphorus metabolism 4 Panfilo Addison. [address], [place], [place], [address] , [place]. tel:[phone] OFFICE/OUTPA TIENT VISIT, [facility], [address], [place], [place], [address], [place] [phone] [facility] physical (chief complaint) Encounter for general adult medical exam w abnormal findingsGERD w/o esophagitisEssentia l (primary) hypertensionType 2 diabetes mellitus without complicationsMixed hyperlipidemiaMalig nant neoplasm of unspecified site of left female breast 4 Panfilo Addison. [address], [place], [place], [address] , [place]. tel:[phone] OFFICE/OUTPA TIENT VISIT, [facility], [address], [place], [place], [address], [place] tel:[phone] [facility] breast CA (chief complaint) HTN (chief complaint) Essential (primary) hypertensionMaligna nt neoplasm of unspecified site of left female breast 3 Panfilo Addison. [address], [place], [place], [address] , [place]. tel:[phone] OFFICE/OUTPA TIENT VISIT, [facility], [address], [place], [place], [address], [place] [phone] [facility] breast nodule1 (chief complaint) Lump in left breast, subareolar 3 Panfilo Addison. [address], [place], [place], [address] , [place]. tel:[phone] OFFICE/OUTPA TIENT VISIT, [facility], [address], [place], [place], [address], [place] tel:[phone] [facility] breast mass1 (chief complaint) Lump in left breast, subareolar 3 Panfilo Addison. [address], [place], [place], [address] , [place]. tel:[phone] OFFICE/OUTPA TIENT VISIT, [facility], [address], [place], [place], [address], [place] tel:[phone] [facility] DM (chief complaint) GERD1 (chief complaint) flank pain1 (chief complaint) Type 2 diabetes mellitus without complicationsGERD w/o esophagitisUpper abdominal painHypokalemiaInco nclusive mammogram 3 Panfilo Shin [address], [place], [place], [address] , [place]. tel: [phone] OFFICE/OUTPA TIENT VISIT, [facility], [address], [place], [place], [address], [place] tel:[phone] [facility] GERD1 (chief complaint) DM (chief complaint) weight loss1 (chief complaint) GERD w/o esophagitisType 2 diabetes mellitus without complicationsAbnorm al weight lossDisease of gallbladder, unspecified 3 Panfilo Addison. [address], [place], [place], [address] , [place]. tel: [phone] OFFICE/OUTPA TIENT VISIT, [facility], [address], [place], [place], [address], [place] tel:[phone] [facility] abd pain (chief complaint) Generalized abdominal painDisease of gallbladder, unspecified January- 3 Panfilo Addison. [address], [place], [place], [address] , [place]. tel:[phone] OFFICE/OUTPA TIENT VISIT, [facility], [address], [place], [place], [address], [place] tel:[phone] [facility] ABD PAIN (chief complaint) DM (chief complaint) fatty liver1 (chief complaint) Type 2 diabetes mellitus without complicationsFatty liverCholesterolosi s of gallbladderGERD w/o esophagitisUpper abdominal pain, unspecified Dec- 3 Panfilo Shin [address], [place], [place], [address] , [place]. tel:[phone] OFFICE/OUTPA TIENT VISIT, [facility], [address], [place], [place], [address], [place] tel:[phone] [facility] DM (chief complaint) grave disease1 (chief complaint) HLP (chief complaint) polyp1 (chief complaint) weight gain1 (chief complaint) abd pain1 (chief complaint) Type 2 diabetes mellitus without complicationsGoiter Mixed hyperlipidemiaAbnor mal weight gainUpper abdominal pain, unspecified 3 Panfilo Shin [address], [place], [place], [address] , [place]. [phone] OFFICE/OUTPA TIENT VISIT, [facility], [address], [place], [place], [address], [place] tel:[phone] [facility] physical (chief complaint) Encounter for general adult medical exam w abnormal findingsEssential (primary) hypertensionMixed hyperlipidemiaType 2 diabetes mellitus without complicationsGoiter Abnormal weight gain 3 Panfilo Shin [address], [place], [place], [address] , [place]. [phone] OFFICE/OUTPA TIENT VISIT, [facility], [address], [place], [place], [address], [place] tel:[phone] [facility] sick (chief complaint) Acute bronchitis 2 Panfilo Shin [address], [place], [place], [address] , [place]. [phone] OFFICE/OUTPA TIENT VISIT, [facility], [address], [place], [place], [address], [place] tel:[phone] [facility] Medicine DM (chief complaint) HTN (chief complaint) HLP (chief complaint) HyperlipidemiaEssen tial (primary) hypertensionGoiterT ype 2 diabetes mellitus without complicationsLiver disease 2 Panfilo Shin [address], [place], [place], [address] , [place]. tel:[phone] OFFICE/OUTPA TIENT VISIT, [facility], [address], [place], [place], [address], [place] tel:[phone] [facility] physical (chief complaint) Encounter for general adult medical exam w abnormal findingsEssential (primary) hypertensionHyperli pidemiaType 2 diabetes mellitus without complicationsGoiter 2 Panfilo Shin [address], [place], [place], [address] , [place]. tel:[phone] OFFICE/OUTPA TIENT VISIT, [facility], [address] [place], [address], [place] tel:[phone] [facility] HLP (chief complaint) DM (chief complaint) HTN (chief complaint) eyelid1 (chief complaint) HyperlipidemiaEssen tial (primary) hypertensionType 2 diabetes mellitus without complicationsOther benign neoplasm of skin of eyelid including canthusEncounter for screening for malignant neoplasm of colon 1 Panfilo Shin [address], [place], [place], [address] , [place]. tel:[phone] OFFICE/OUTPA TIENT VISIT, [facility], [address] [place] [place], [address], [place] tel:[phone] [facility] DM (chief complaint) HLP (chief complaint) hair loss1 (chief complaint) HyperlipidemiaType 2 diabetes mellitus without complicationsGoiter 1 Panfilo Shin [address], [place], [place], [address] , [place]. tel:[phone] OFFICE/OUTPA TIENT VISIT, [facility], [address] [place] [place], [address], [place] tel:[phone] [facility] HTN (chief complaint) HLP (chief complaint) DM (chief complaint) thyroid nodule1 (chief complaint) HyperlipidemiaLiver diseaseEssential (primary) hypertensionType 2 diabetes mellitus without complicationsThyroi d nodule Dec-0 1 Panfilo Shin [address], [place], [place], [address] , . tel:[phone] OFFICE/OUTPA TIENT VISIT, [facility], [address] [place], [address], [phone] [facility] DM (chief complaint) HLP (chief complaint) pneumonia1 (chief complaint) HTN (chief complaint) HyperlipidemiaLiver diseasePneumoniaEss ential (primary) hypertensionType 2 diabetes mellitus without complications 1 Panfilo Shin [address], [place], [place], [address] , [place]. tel:[phone] OFFICE/OUTPA TIENT VISIT, [facility], [address] [place], [address], [place] tel:[phone] [facility] polycythem ia1 (chief complaint) HLP (chief complaint) pneumonia1 (chief complaint) DM (chief complaint) HyperlipidemiaPneum oniaSecondary polycythemiaType 2 diabetes mellitus without complications Aug-3 - 0 Panfilo Shin [address], [place], [place], [address] , [place]. tel:[phone] OFFICE/OUTPA TIENT VISIT, [facility], [address] [place], [address], [place] tel:[phone] [facility] DM (chief complaint) HLP (chief complaint) LFT (chief complaint) HCT (chief complaint) pneumonia1 (chief complaint) HyperlipidemiaType 2 diabetes mellitus without complicationsLiver diseaseSecondary polycythemiaPneumon ia Aug-0 0 Panfilo Shin [address], [place], [place], [address] , [place]. tel:[phone] PREV VISIT, NEW, AGE 40-64 [facility], [address] [place], [address], [place] tel:[phone] [facility] physical (chief complaint) Encounter for general adult medical exam w abnormal findingsViral infectionEssential (primary) hypertensionDyspnea Pneumonia 0 Whittaker Azael. [address], [place], [place], [address] , [place]. tel:[phone] Family History Family Member Type Diagnosis Age At Onset Brother Problem Hyperlipidemia Mother Problem lung CA but not sure if it i s from colon 79 Father Problem prostate CA, another CA (Cau se Of ) 73 Brother Problem Diabetes mellitus type 2 61 Payers Payer name Insurance type Covered green party ID Authoriza tiadam(s) [employer] [place] MINNIE DYER [id number] Social History Type Description Quantity Date Captured Comments Alcohol Use Details Unknown Caffeine Use Details Unknown Tobacco Use Status No Information Smoking Status No Information Sex Female Vital Signs Date / Time: Height Weight BMI Pulse Rate Blood Pressure Temperature Respiratory Rate Body Surface Area Head Circumference BMI percentile Pulse Ox Inhaled Ox 9:13 AM 66.00 in 194.40 lbs 31.3 8 kg/m eter (2) 69 /min 135/80 mm[Hg] 98.3 F 16 /min Chief Complaint And Reason For Visit From encounter dated '11/11/2024 09:08'. physical (chief complaint). Description: Pt needs annua physical, Pt has borderline DM. Pt takes metformin and her glucose is around 110. Pt denies any polyuria, polydipsia. Pt has HTN .Pt takes lisinopril/hctz and her bp is ok pt denies any chest pain or headache. Pt has HLP Pt takes crestor .Pt has grave disease Pt sees endo and she is on methimazole Pt denies any dysphagia or neck pain. Pt hasleft breast CA s/p surgical removal along with lymph nodes and she is on anastrazole. Pt sees breast specialist Plan Of Treatment Date Type Action Status Referral Ordered: COLONOSCOPY AND BIOPSY ordered Referral Ordered: Tonie Licona -[facility] : Surgery (related to Malignant neoplasm of unspecified site of left female breast) ordered Referral Referred To: Tonie Licona [address], [place], [id number] Ordered: Referrals: [facility] Phys[facility] : Surgery. Tonie Licona. Evaluate and treat ordered Referral Ordered: US GUIDANCE ordered Referral Ordered: MAMMOGRAM, ONE BREAST ordered Referral Referred To: Luis De León [address] [place], [phone] Ordered: Referrals: Luis De León. Evaluate and treat ordered Referral Ordered: UPPER GI ENDOSCOPY, BIOPSY ordered Referral Ordered: NUC MED HIDA (HEPATOBILIARY) SCAN ordered Referral Ordered: US EXAM, ABDOM, COMPLETE ordered Referral Ordered: CHEST X-RAY PA/LAT TWO-VIEWS ordered Referral Ordered: DXA BONE DENSITY, AXIAL ordered Referral Ordered: MAMMOGRAM, SCREENING ordered Referral Ordered: CT THORAX W/DYE ordered Appointment Rola Recinos BOOKED History Of Present Illness Encounter Date Complaint History Of Prese nt Illness physical Pt needs annua p hysical, Pt has borderline DM. Pt takes metformin and her glucose is around 110. Pt denies any polyuria, polydipsia. Pt has HTN .Pt takes lisinopril/hctz and her bp is ok pt denies any chest pain or headache. Pt has HLP Pt takes crestor .Pt has grave disease Pt sees endo and she is on methimazole Pt denies any dysphagia or neck pain. Pt has left breast CA s/p surgical removal along with lymph nodes and she is on anastrazole. Pt sees breast specialist GERD1 Pt no longer has GERD pt is on omeprazole Pt denies any abd pian bone1 Pt has normal josué ne density per endo Pt saw endo recently and her A1c was 5.9 .pt also has history of benign thyroid nodule s/p negative biopsy. Pt denies any dysphagia or neck pain. breast CA1 Pt has history o f left breast cA s/p left lumpectomy and she is on anastrazole and she sees breast specialist. Pt overall doing ok pt had negative mammo recently HTN Pt has HTN Pt ta kes lisinopril/hctz and her bp is borderline. Pt denies any chest pain or headache DM Pt has DM. pt ta kes metformin and her a1c is 5.8. Pt denies any polyuria ,polydipsia Pt denies any neuropathy phos Pt has mildly hi gh phos. Pt denies any muscle pain or weakness . HLP Pt has HLP Pt ta kes crestor. Pt denies any myalgia .Pt has mildly high TG . HTN Pt has HTN >pt t akes lisinopril/hctz and her bp is stable. physical Pt needs annua p hysical, Pt has borderline DM. Pt takes metformin and her glucose is around 115. Pt denies any polyuria, polydipsia. Pt has HTN .Pt takes lisinopril/hctz and her bp is ok pt denies any chest pain or headache. Pt has HLP Pt takes crestor .Pt has grave disease Pt sees zion and she is on methimazole Pt denies any dysphagia or neck pain. Pt has left breast CA s/p surgical removal along with lymph nodes and she will start radiation and hormone treatment soon. 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 Pt denies any palpable breast nodule or pain or any discoloration, retraction, nipple discharge any redness or warmth or axillary mass' HTN Pt takes lisinop ril Her bp is high today Pt is very nervous and anxious about her breast mammo and biopsy results. breast nodule1 Pt has suspiciou s left breast nodule on diagnostic mammogram and ultrasound Pt denies any breast pain, palpable nodule, mass, redness, warmth, drainage. breast mass1 Pt had screening mammo done which showed left breast mass. pt denies any palpable breast nodule or mass or any pain or any discoloration or any retraction or any drainage Pt denies any history of abnormal mammo DM pt has DM Pt tana es metformin only Pt unable to get rybelsus since it is very expensive. Pt denies any polyuria, polydipsia. Pt states that her glucose is around 120s . GERD1 Pt has gastritis . Pt has small shallow ulcer with negative biopsy .Pt is on omeprazole and doing ok flank pain1 Pt c/o acute ons et of right flank pain 3 weeks ago and she went to Er and CT showed non obstructive right renal stone. UA ok but she got abx anymore. Pt denies any fever, chill. Pt did have mld low kcl. Pt denies any nausea, vomiting Pt denies any urinary symptoms. Pt states that right flank pain resolved. GERD1 Pt has intermitt ent GERD. Pt is on omeprazole daily and doing ok. Pt has egd scheduled next week. Pt denies any nausea, vomiting Pt had her gallbladder removed recently and she is doing ok post op. Pt denies any abd pain DM Pt takes metform in and rybelsus 3 mg. Pt lost some weight Pt denies any GI side effects Pt denies any abd pian weight loss1 Pt lost some grace ght with rybelsus. Pt denies any nausea, vomiting, early satiety, bloating. abd pain Pt c/o intermitt ent right abdominal and right flank pain for several months Pt c/o mild crampy pain Pt denies any nausea, vomiting, diarrhea. Pt mostly notices the pain after food. Pt denies any rash. Pt has mild GERD sometimes. Pt had ultrasound done which showed fatty liver and 8 mm gallbladder polyp. Pt has HIDa scan done which showed gallbladder disease. Pt denies any fever DM Pt has DM Pt tana es metformin and her glucose is getting worse. Pt also gained weight. Pt states that rybelsus is not covered by insurance. Pt did not order picker rybelsus. fatty liver1 Pt has fatty lea er. ABD PAIN Pt c/o intermitt ent right abdominal and right flank pain for several months Pt c/o mild crampy pain Pt denies any nausea, vomiting, diarrhea. Pt mostly notices the pain after food. Pt denies any rash. Pt has mild GERD sometimes. Pt had ultrasound done which showed fatty liver and 8 mm gallbladder polyp DM Pt has borderlin e DM. her glucose was 142 and her A1c is 6.0, which was slightly worse than 5.6 from last year. pt denies any polyuria, polydipsia grave disease1 pt has grave dis ease. Pt denies any dysphagia or neck pain Pt sees endo Pt has alberto next monday. Pt is on methimazole. HLP Pt has mild high TG Pt is on crestor. her lipid profile is ok Pt denies any myalgia polyp1 pt had colonosco py done 2019 which showed tubular adenoma. Pt has been having chronic constipation with hard stool every 2-3 days Pt denies any blood stool. Pt denies any abd pain weight gain1 Pt has been gain ing weight. pt is not very active abd pain1 Pt c/o intermitt ent right abdominal and right flank pain for two weeks. Pt c/o mild crampy pain Pt denies any nausea, vomiting, diarrhea pt denies any relationships to food. Pt denies any rash. Pt has mild GERD sometimes. physical Pt needs annua p hysical, Pt has borderline DM. Pt takes metformin and her glucose is around 114. Pt denies any polyuria, polydipsia. Pt has HTN .Pt takes lisinopril/hctz and her bp is ok pt denies any chest pain or headache. Pt has HLP Pt takes crestor .Pt has grave disease Pt sees endo and she is on methimazole Pt denies any dysphagia or neck pain. Pt has been sedentary and she has been gaining weight. Pt denies any other complaints sick Pt c/o acute ons et of sore throat, productive cough with green phlegm, postnasal drainage for 5 days. Pt denies any sob or fever. .Pt denies any chest pain. Pt tested negative for COVID at home yesterday. Pt had two COVID vaccine but no boosters. Pt failed OTC meds. DM Pt has DM. Pt ta kes metformin and her lab showed A1c around 5.6. Pt denies any polyuria, polydipsia. Pt denies any neuropathy HTN Pt has HTN. Pt t akes lisinopril/hctz. Pt is out of meds for several days. Her bp is around 154/90 today. Pt denies any chest pain or headache HLP Pt has HLP. Pt t akes crestor .Pt denies any myalgia. Lab missed lipid profile physical Pt needs annual physical. pt has borderline DM. Pt takes metformin. Pt states that her glucose is around 110s .Pt denies any polyuria, polydipsia Pt denies any neuropathy. Pt has HLP ,Pt takes crestor. Pt denies any myalgia Pt has mild HTn ,Pt takes lisinopril and her pb is stable. Pt has grave disease Pt sees endo Pt is on methimazole Pt denies any dysphagia or neck pain. Pt has not done lab yet .pt has been diet and exercising and losing weight intentionally. Pt denies any other complaints HLP Pt takes crestor 20 mg and her lipid profile improved her TG is borderline high Pt denies any myalgia DM Pt has DM. Pt ta kes metformin and his glucose is around 80-100 Pt denies any polyuria, polyuria. pt denies any neuropathy HTN Pt has HTN Pt ta kes lisinopril and her bp is stable at home Pt denies any c eyelid1 Pt has eyelid le linden and will have it removed soon and she needs surgical clearance DM pt has DM Pt tana es metformin only .Pt states that her glucose is around 120s Pt denies any polyuria polydipsia Pt had lab done and her A1c is down to 5.4 from 7.8 HLP Pt has HLP. She takes crestor and her lipid profile has not changed very much. Her TG did decrease by about 200 points but TC has not changed. Pt denies any myalgia hair loss1 Pt has grave dis ease and she is on methimazole. Pt sees endo. Pt notices excessive amount of hair loss recently ,Pt denies any bald spot, Pt asked her endo about that and was it is due to her age. Pt denies any itchy scalp or rash HTN Pt takes lisinop ril/hctz Pt denies any chest pain Her BP is around 120/60. HLP Pt takes crestor , Pt denies any myalgia DM Pt has DM, Pt ta kes metformin and her glucose is around 100 Pt denies any polyuria polydipsia. Pt denies any neuropathy thyroid nodule1 Pt has grave dis ease and thyroid nodule Pt just saw her endo who ordered lab and also thyroid ultrasound Pt denies any dysphagia or neck pain DM Pt has been taki ng metformin. Pt states that her glucose is around 120-130 on average. Pt denies any polyuria, polydipsia Pt denies any neuropathy HLP Pt tolerating cr estor ok. Pt denies any myalgia pneumonia1 Pt denies any co ugh, chest pain, hemoptysis. her chest x ray is ok now. HTN Pt has HTN .Pt t akes lisinopril/hctz and her bp is stable Pt denies any chest pain or headache polycythemia1 Pt has mild poly cythemia. Pt has normal iron and ferritin . HLP Pt tolerating cr estor ok .P denies any myalgia pneumonia1 Pt took levaquin .Pt denies any cough or any sob .Pt denies any fever or chest pain .Pt overall feels better . DM Pt has DM ,which is newly diagnosed .Pt denies any polyuria, polydipsia .Pt does see endo. Pt is not on any medication DM Pt has high gluc ose Pt denies any polyuria, polydipsia .Pt does not have a diagnosis of DM HLP Pt has HLP ,Pt i s on any diet LFT Pt has borderlin e high LFT. Pt denies any abd pain or jaundice HCT Pt has high HCT. hemoglobin ok pneumonia1 Pt c/o persisten t productive and clear phlegmy cough with some mild sob. Pt denies any fever, pt denies any chest pain. Pt only feels sob with exertion. Chest CT showed pneumonia with hilar lymphadenopathy with small pericardial effusion. physical Pt needs annual physical. Pt was diagnosed with COVID-19 on 07/09/20. Pt was admitted to hospital over night due to oxygen issue. Pt was told that she has cCOVID-19 pneumonia. Pt had chest cT done which showed ground glass opacity due to COVID-19 pneumonia on 07/15/20. Pt since has been having hard time recovering. Pt feels overall weak and fatigue, exertional dyspnea, some anterior chest pain. Pt went to see her pcp last week and her HR was 140 and PCP told her that she is dehydrated and took her off lisinopril/hctz . Pt states that her bp without medication is 160/90. Pt also notices LE edema without HCTZ. Pt denies any headache. Pt feels sore throat, chest pain, sob with mild persistent dry cough. Pt denies any hemoptysis, worsening sob. Pt overall feels weak. Pt states that her PCP released her back to work on Monday but she is not able to go back yet due to how she feels Pt denies any fever. Pt saw her PCP yesterday and she was restarted on lisinopril/hctz. Pt denies any nausea, vomiting, diarrhea, blood in stool, Pt has normal UO Instructions Date Instruction Additional Infor mation No Information Assessments Type Assessment Date assessment Encounter for genera l adult medical examination without abnormal findings Mental Status Date Cognitive Assessment Orientation - [place] ed to time, place, person, situation.
--- OUTSIDE RECORDS SUMMARY | 2025-01-23 00:50 | XMS_ITS | Clinical Summary ---
Author Organization [facility] Address [address] [place] [address] Phone Care Team Providers Care Land Appraiser Name Role Phone Azael Whittaker MD Primary Care Provider [phone] Allergies Active Allergy Reactions Criticality Noted Date Comments Penicillins Rash Medium 07/15/2020 Medications methIMAzole (TAPAZOLE) 5 mg tablet Take 5 mg by mouth daily. Active aspirin (ECOTRIN EC) 81 mg Tablet, Delayed Release (E.C.) Take 81 mg by mouth daily. Active lisinopril-hydr oCHLOROthiazide (ZESTORETIC) 20-25 mg tablet Take 1 Tablet by mouth daily. Active metFORMIN (GLUCOPHAGE) 500 mg tablet TAKE 1 TABLET BY MOUTH TWICE DAILY WITH MORNING MEAL AND WITH EVENING MEALS 03/02/2021 Active rosuvastatin (CRESTOR) 20 mg tablet Take 20 mg by mouth daily. 03/14/2021 Active cholecalciferol , Vitamin D3, (VITAMIN D3) 25 mcg (1,000 unit) Capsule Take by mouth daily. Active biotin-lutein 5,000 mcg- 10 mg Tablet Take by mouth. Active antiox #8/om3/dha/epa/ lut/zeax (PRESERVISION AREDS 2, OMEGA-3, ORAL) Take by mouth. Active OMEGA-3 FATTY ACIDS-FISH OIL ORAL Take 2,000 mg by mouth daily. Active anastrozole (Arimidex) 1 mg tablet Take 1 Tablet (1 mg) by mouth daily. 90 Tablet 3 06/21/2024 Active Active Problems Problem Noted Date Diagnosed Date Renal cyst, left 07/16/2020 Pneumonia due to COVID-19 virus 07/15/2020 Projectile vomiting with nausea 07/15/2020 Acute diarrhea 07/15/2020 Encounters Date Type Department Care Team Description 12/11/2024 External Device Data ST[facility] ABSTRACTION Provider, Abstract 11/30/2024 External Device Data [facility] ABSTRACTION Provider, Abstract 11/29/2024 External Device Data [facility] ABSTRACTION Provider, Abstract 11/27/2024 External Device Data [facility] ABSTRACTION Provider, Abstract 11/27/2024 External Device Data [facility] ABSTRACTION Provider, Abstract 11/13/2024 External Device Data [facility] ABSTRACTION Provider, Abstract from Last 3 Months Family History Medical History Relation Name Comments Heart Disease Brother 1 Diabetes Brother 2 Cancer Father Cancer Mother Heart Disease Sister Relation Name Status Comments Brother 1 Alive Brother 2 Alive Brother 3 Alive Daughter Alive Father Mother Sister Alive Son 1 Alive Son 2 Alive Social History Tobacco Use Types Packs/Day Years Used Date Smoking Tobacco: Former Cigarettes Q uit: 2012 Smokeless Tobacco: Never Tobacco Cessation:Counseling Given: Not Answered Alcohol Use Standard Drinks/Week Comments Not Currently 0 (1 standard drink = 0.6 oz pur e alcohol) Comments Unknown Sex and Gender Information Value Date Recorded Sex Assigned at Not on file Legal Sex Female 11:03 AM CDT Gender Identity Not on file Sexual Orientation Not on file Last Filed Vital Signs Vital Sign Reading Time Taken Comments Blood Pressure 127/75 10/25/2024 10:15 AM SAP INTEGRATION ARCHITECT Pulse 76 10/25/2024 10:13 AM SAP INTEGRATION ARCHITECT Temperature 36.7 C (98.1 F) 10/25/2024 10:13 AM SAP INTEGRATION ARCHITECT Respiratory Rate 16 10/25/2024 10:1 3 AM SAP INTEGRATION ARCHITECT Oxygen Saturation 94% 10/25/2024 10: 13 AM SAP INTEGRATION ARCHITECT Inhaled Oxygen Concentration - - Weight 87.9 kg (193 lb 12.8 oz) 025 10:13 AM SAP INTEGRATION ARCHITECT Height 167.6 cm (5' 6 ) 07/11/2023 3:31 PM CDT Body Mass Index 31.28 07/11/2023 3:31 PM CDT Plan of Treatment Upcoming Encounters Date Type Department Care Team (Late st Contact Info) Description 02/28/2025 9:00 AM CDT Office Visit [facility] - [place] [address] [place] [phone] Delfino Head MD [address] [facility] [address] [place] [address] Health Maintenance Due Date Last Done Comments DIABETES ANNUAL FOOT EXAM 1974 DIABETES MICROALBUMIN ANNUAL SCREEN 1974 LDL CHOLESTEROL ANNUAL 1974 PNEUMOCOCCAL VACCINE 50+ YEA RS (1 of 2 - PCV) 1975 COLORECTAL SCREENING 2001 Colorectal Cancer Screening 2001 FIT-DNA Q 3 years 2001 FIT/FOBT Q 1 year 2001 Flex Sig/CT Colonography Q 5 years 2001 ZOSTER VACCINE (1 of 2) 2006 DTAP/TDAP/TD VACCINES (2 - Tdap) 02/16/2020 02/16/20 10 DIABETES ANNUAL RETINAL EXAM 04/03/2024 04/03/2023, 04/03/2023 INFLUENZA VACCINE (#1) 2024 , 07/09/2018, 10/31/2017, Additional history exists COVID-19 Vaccine (3 - 2023-2 5 season) 2024 01/08/2021, 12/18/2020 BREAST CANCER SCREENING 08/14/2024 08/14/20 23, 06/30/2023, 06/15/2023, Additional history exists DIABETES HBA1C Q 6 MONTHS 11/07/20242023, 11/13/2023, 06/28/2023, Additional history exists OSTEOPOROSIS SCREENING 05/02/2029 05/02/2024 RSV VACCINE (60+ or ) (1 - 1-dose 75+ series) 2031 Insurance RX [facility] Commercial MEDICARE PART A AND B MEDICARE PART A AND B [employer]ET[employer] MEDICARE SUPP AESSI Advance Directives For more information, please contact: [phone] * Full Code (Latest Code Status on File) Date Activated Date Inactivated Comments 07/15/2020 8:07 PM 07/16/2020 10:56 PM Care Teams Land Appraiser Relationship Specialty Start Date End Date Azael Whittaker MD [address] [place] [phone] PCP - General Family Practice 07/11/23
--- OUTSIDE RECORDS SUMMARY | 2025-01-23 00:50 | XMS_ITS | Continuity of Care Document ---
Author Organization [facility] Address [address] [place] [address] [address] [place] [address] Phone Care Team Providers Care Gynaecological Oncologist Name Role Phone Julia Fields Unavailable Unavailable Advance Directives Directive Yes / No Effective Date File Name No Information Encounters Encounter Description Practice Location Reason(s) For Visit Diagnoses Date Provider Providers Copied on Encounter [facility], [address], [place], [place], [id number], [place] tel:[phone] [facility] No Information 0 2-[address]. [address] [facility] , [address], [place], [address], [place]. tel:[phone] Family History Family Member Type Diagnosis Age At Onset No Information Payers Payer name Insurance type Covered constitution party ID Authoriza tiadam(s) [facility] Commercial CI [id number] Social History Type Description Quantity Date Captured Comments Sex Female Smoking Status No Information Chief Complaint And Reason For Visit No Information Reason For Referral Reason For Referral No Information History Of Present Illness Encounter Date Complaint History Of Prese nt Illness No Information Functional Status Date Functional Assessmen t No Information Instructions Date Instruction Additional Infor mation No Information Assessments Type Assessment Date No Information Patient Care Teams Name Effective Dates (start - stop) Status Members No Information
[2025-01-23 10:10] VITALS: BP 139/57; PULSE 71; RESP 18; TEMP 36.3; O2SAT 100; BMI 30.6
[2025-01-23] MEDS: LACTATED RINGERS 1,000 ML 150 ML IV CONT (10:22)
[2025-01-23 10:24] LABS: Glucose Point of Care 109 mg/dl (65-105)
--- NOTE | 2025-01-23 10:58 | PM.HPGS ---
History of Present Illness History of Present Illness Consent: Risks, benefits, and alternatives have been discussed and questions answered. Patient agrees to proceed with procedure. Chief complaint: Hx of polyps Narrative: Rola Recinos is a 69 year old female with colon polyp 5 years ago Review of Systems Review of Systems: All systems reviewed & are unremarkable except as noted in HPI and below PMFSH Past Medical History Medical History (Updated 01/23/25 @ 10:59 by Francis Brewer MD) Colon polyp GERD (gastroesophageal reflux disease) Obesity Type 2 diabetes mellitus Hypertension Hypertriglyceridemia Hyperthyroidism Surgical History Surgical History Hx laparoscopic cholecystectomy Robotic assisted lap sun on 02/07/23 H/O: hysterectomy Family History Family History Father Family history of malignant neoplasm Other Diabetes mellitus Family history of congestive heart failure Heart disease Social History Social History Smoking packs per day: 1 Smoking cigarettes per day: 20.0 Years smoked: 28 Smoking pack-years: 28.00 Smoking status: Former smoker Tobacco type: cigarettes Second hand tobacco smoke exposure: No Additional smoking assessment comments: PT STATES STOPPED SMOKING 2008~ Alcohol intake: never Substance use: never Substance use type: does not use Lack of Transportation: No Lack of Food: Never True Current Housing: I Have Housing Concerned About Future Housing: No Difficulty Paying Gas/Electric Bills: No Difficulty Paying for Meds: No Currently Unemployed: Decline to Answer Education: Decline to Answer Difficulty w/ Childcare or Family Care: Decline to Answer Living arrangements: with family Occupation/Education: retired Spiritual care concerns: No Meds Home Medications and Allergies Home Medications ?Medication ?Instructions ?Recorded ?Confirmed ?Type lisinopril 20 1 tablet PO DAILY 09/10/20 01/23/25 History mg-hydrochlorothiazide 25 mg tablet aspirin 81 mg tablet,delayed 81 mg PO DAILY 12/17/20 01/23/25 History release (Adult Low Dose Aspirin) metformin 500 mg tablet,extended 500 mg PO BID 12/17/20 01/23/25 History release 24 hr biotin 5,000 mcg disintegrating 5,000 mcg PO DAILY 07/26/23 01/23/25 History tablet anastrozole 1 mg tablet 1 mg PO DAILY 05/07/24 01/23/25 History methimazole 5 mg tablet See Rx Instructions .Route 11/14/24 01/23/25 Rx .COMPLEX #54 tabs docusate sodium 100 mg capsule 100 mg PO DAILY #90 caps 11/26/24 01/23/25 Rx (Colace) rosuvastatin 20 mg tablet 20 mg PO DAILY 11/26/24 01/23/25 History omega-3 fatty acids 2,000 mg PO BID 01/13/25 01/23/25 History vit C 250 mg-vit E 200 unit-zinc 1 cap PO BID-TID 01/13/25 01/23/25 History ox 12.5 fw-vcgpnf-cfxcso-zeax capsule Allergies Allergy/AdvReac Type Severity Reaction Status Date / Time Penicillins Allergy Unknown Rash Verified 01/23/25 10:09 Vital Signs Vital Signs - 24 hr 01/23/25 10:10 Temperature 97.3 F L Pulse Rate 71 Respiratory Rate 18 Blood Pressure 139/57 L Pulse Oximetry 100 Oxygen Delivery Room Air Exam Const: General: comfortable and no acute distress HENMT: Face/Nose/Sinus: Normal nares present Eyes: General: appearance normal, both eyes and all related structures Neck: Neck: no JVD Resp: Auscultation: clear to auscultation bilaterally Cardio: Rate: regular rate Rhythm: regular rhythm GI: Inspection: non-distended GI Palp: Yes Soft to palpation Skin: General skin exam: normal color Neuro: General: gait normal Speech: normal speech Extrem: General: normal to inspection Psych: Mental Status: mental status grossly normal Assessment and Plan Assessment and plan (1) Colon polyp: Code(s): K63.5 - Polyp of colon Status: Acute Assessment and Plan: colonoscopy
[2025-01-23 11:14] VITALS: BP 104/58; PULSE 65; RESP 17; O2SAT 100
[2025-01-23 11:24] VITALS: BP 115/54; PULSE 67; RESP 24; O2SAT 100
[2025-01-23 11:34] VITALS: BP 127/47; PULSE 59; RESP 22; O2SAT 100
== END 2025-01-23 11:47 | disposition home or self-care (01) ==
PROVIDERS: PCP Emergency Medicine; Referring Provider Emergency Medicine; Visit Provider Internal Medicine Gastroenterology
PROC: 0DJD8ZZ Inspection of Lower Intestinal Tract, Via Natural or Artificial Opening Endoscopic (ICD-10-PCS; CPT 45378; principal; 2025-01-23 11:30)
DX: Z12.11 Encounter for screening for malignant neoplasm of colon (principal); K57.30 Diverticulosis of large intestine without perforation or abscess without bleeding; K64.8 Other hemorrhoids; Z86.0100 Personal history of colon polyps, unspecified; E11.9 Type 2 diabetes mellitus without complications; Z87.891 Personal history of nicotine dependence; E66.9 Obesity, unspecified; Z68.30 Body mass index [BMI] 30.0-30.9, adult
CPT/HCPCS: G0105; 82948; J2003; J2704; J7120

== ENCOUNTER 2025-01-31 10:21 | Outpatient (CLI) | payer MEDICARE, SELFPAY ==
--- NOTE | ~2025-01-31 | MM_ITS ---
EXAMINATION: MM diagnostic jazmyne BI w musa HISTORY: Prior left lumpectomy for breast cancer in 2022 TECHNIQUE: Additional 3-D tomosynthesis images of the breasts were performed and synthetic 2-D images were generated. CAD analysis was submitted and interpreted. COMPARISON: Comparison to multiple prior studies sequentially, with oldest reviewed study dated 06/15. BREAST PARENCHYMAL COMPOSITION: Not dense: There are scattered areas of fibroglandular density. FINDINGS: There has been interval development of regional pleomorphic and serpiginous calcifications in the upper inner quadrant of the left breast. Some of these calcifications located more superiorly on mediolateral view have a rim-like appearance. No suspicious associated masses or architectural dis tortion. There is no mammographic evidence for malignancy in the right breast. IMPRESSION: 1. New pleomorphic clustered calcifications upper inner quadrant of the left breast, posterior third. 2. Stereotactic left breast biopsy recommended. BI-RADS category 4, suspicious findings. Reviewed, dictated and finalized at location A. IMPRESSION: 1. New pleomorphic clustered calcifications upper inner quadrant of the left br east, posterior third. 2. Stereotactic left breast biopsy recommended. BI-RADS category 4, suspicious findings.
--- OUTSIDE RECORDS SUMMARY | 2025-01-31 10:26 | XMS_ITS | Continuity of Care Document ---
Author Organization [facility] Address [address] [place] [address] [address] [place] [address] Phone Care Team Providers Care Tire Maker Name Role Phone Julia Fields Unavailable Unavailable Advance Directives Directive Yes / No Effective Date File Name No Information Encounters Encounter Description Practice Location Reason(s) For Visit Diagnoses Date Provider Providers Copied on Encounter [facility], [address], [place], [place], [id number], [place] tel:[phone] [facility] No Information 0 2-[address]. [address] [facility] , [address], [place], [address], [place]. tel:[phone] Family History Family Member Type Diagnosis Age At Onset No Information Payers Payer name Insurance type Covered green party ID Authoriza tiadam(s) [facility] Commercial CI [id number] Social History Type Description Quantity Date Captured [...]
--- OUTSIDE RECORDS SUMMARY | 2025-01-31 10:26 | XMS_ITS | Continuity of Care Document ---
Author Organization [facility] Address [address] [place] [address] [place] [address] Phone Care Team Providers Care Deputy Of Counter Intelligence Name Role Phone Azael Whittaker MD Unavailable Unavailable Allergies, Adverse Reactions, Alerts Substance Reaction Status Criticality PENICILLIN Active No Information Medications Medication Instructions Dosage Effective Dates (start - stop) Status Comments metformin 500 mg tablet take 1 tablet by oral route 2 times every day with morning and evening meals 500 MG - Active Crestor 20 mg tablet take 1 tablet by oral route every day 20 MG - Active lisinopril 20 mg-hydrochlorothiazi de 25 mg tablet take 1 tablet by oral route every day 1.00 tablet - Active anastrozole 1 mg tablet take [...] Diagnoses Date Provider Providers Copied on Encounter [facility], [address] [place], [place], [address], [place] tel:[phone] [facility] physical (chief complaint) Encounter for general adult medical examination without abnormal findings 5 Panfilo Addison. [address], [address] , [place]. [phone] OFFICE/OUTPA TIENT VISIT, [facility], [address]harthae [place], [place], [address], [place] tel:[phone] [facility] GERD1 (chief complaint) bone1 (chief complaint) breast CA1 (chief complaint) HTN (chief complaint) GERD w/o esophagitisEssentia l (primary) hypertensionType 2 diabetes mellitus without complicationsThyroi d noduleOther specified disorder of bone densityMalignant neoplasm of unspecified site of left female breast 4 Panfilo Addison. [address], [address], [address] , [place]. tel:[phone] OFFICE/OUTPA TIENT VISIT, [facility], [address] [place], [address], [place] tel:[phone] [facility] DM (chief complaint) phos (chief complaint) HLP (chief complaint) HTN (chief complaint) GERD w/o esophagitisMixed hyperlipidemiaEssen tial (primary) hypertensionType 2 diabetes mellitus without complicationsMalign ant neoplasm of unspecified site of left female breastOther disorders of phosphorus metabolism 4 Panfilo Addison. [address], [address], [place], [place], [address] , [place]. tel:[phone] OFFICE/OUTPA TIENT VISIT, [facility], [address], [place], [place], [address], [place] [phone] [facility] physical (chief complaint) Encounter for general adult medical exam w abnormal findingsGERD w/o esophagitisEssentia l (primary) hypertensionType 2 diabetes mellitus without complicationsMixed hyperlipidemiaMalig nant neoplasm of unspecified site of left female breast 4 Panfilo Addison. [address], [place], [place], [address] , [place]. tel:[phone] OFFICE/OUTPA TIENT VISIT, [facility], [address], [place], [place], [address], [place] tel:[phone] [facility] breast CA (chief complaint) HTN (chief complaint) Essential (primary) hypertensionMaligna nt neoplasm of unspecified site of left female breast 3 Panfilo Addison. [address], [address], [place], [place], [address] , [place]. tel:[phone] OFFICE/OUTPA TIENT VISIT, [facility], [address], [place], [place], [address], [place] [phone] [facility] breast nodule1 (chief complaint) Lump in left breast, subareolar 3 Panfilo Addison. [address], [address], [place], [place], [address] , [place]. tel:[phone] OFFICE/OUTPA TIENT VISIT, [facility], [address], [place], [place], [address], [place] tel:[phone] [facility] breast mass1 (chief complaint) Lump in left breast, subareolar 3 Panfilo Addison. [address], [place], [place], [address] , [place]. tel:[phone] OFFICE/OUTPA TIENT VISIT, [facility], [address], [place], [place], [address], [place] tel:[phone] [facility] DM (chief complaint) GERD1 (chief complaint) flank pain1 (chief complaint) Type 2 diabetes mellitus without complicationsGERD w/o esophagitisUpper abdominal painHypokalemiaInco nclusive mammogram 3 Panfilo Shin [address], [address], [place], [place], [address] , [place]. tel: [phone] OFFICE/OUTPA TIENT VISIT, [facility], [address], [place], [place], [address], [place] tel:[phone] [facility] GERD1 (chief complaint) DM (chief complaint) weight loss1 (chief complaint) GERD w/o esophagitisType 2 diabetes mellitus without complicationsAbnorm al weight lossDisease of gallbladder, unspecified 3 Panfilo Addison. [address], [place], [place], [address] , [place]. tel: [phone] OFFICE/OUTPA TIENT VISIT, [facility], [address], [place], [place], [address], [place] tel:[phone] [facility] abd pain (chief complaint) Generalized abdominal painDisease of gallbladder, unspecified January- 3 Panfilo Addison. [address], [address], [place], [place], [address] , [place]. tel:[phone] OFFICE/OUTPA TIENT VISIT, [facility], [address], [place], [place], [address], [place] tel:[phone] [facility] ABD PAIN (chief complaint) DM (chief complaint) fatty liver1 (chief complaint) Type 2 diabetes mellitus without complicationsFatty liverCholesterolosi s of gallbladderGERD w/o esophagitisUpper abdominal pain, unspecified Dec- 3 Panfilo Shin [address], [address], [place], [place], [address] , [place]. tel:[phone] OFFICE/OUTPA TIENT VISIT, [facility], [address], [place], [place], [address], [place] tel:[phone] [facility] DM (chief complaint) grave disease1 (chief complaint) HLP (chief complaint) polyp1 (chief complaint) weight gain1 (chief complaint) abd pain1 (chief complaint) Type 2 diabetes mellitus without complicationsGoiter Mixed hyperlipidemiaAbnor mal weight gainUpper abdominal pain, unspecified 3 Panfilo Shin [address], [address], [place], [place], [address] , [place]. [phone] OFFICE/OUTPA TIENT VISIT, [facility], [address], [place], [place], [address], [place] tel:[phone] [facility] physical (chief complaint) Encounter for general adult medical exam w abnormal findingsEssential (primary) hypertensionMixed hyperlipidemiaType 2 diabetes mellitus without complicationsGoiter Abnormal weight gain 3 Panfilo Shin [address], [place], [place], [address] , [place]. [phone] OFFICE/OUTPA TIENT VISIT, [facility], [address], [place], [place], [address], [place] tel:[phone] [facility] sick (chief complaint) Acute bronchitis 2 Panfilo Shin [address], [address], [place], [place], [address] , [place]. [phone] OFFICE/OUTPA TIENT VISIT, [facility], [address], [place], [place], [address], [place] tel:[phone] [facility] DM (chief complaint) HTN (chief complaint) HLP (chief complaint) HyperlipidemiaEssen tial (primary) hypertensionGoiterT ype 2 diabetes mellitus without complicationsLiver disease 2 Panfilo Shin [address], [place], [place], [address] , [place]. tel:[phone] OFFICE/OUTPA TIENT VISIT, [facility], [address], [place], [place], [address], [place] tel:[phone] [facility] physical (chief complaint) Encounter for general adult medical exam w abnormal findingsEssential (primary) hypertensionHyperli pidemiaType 2 diabetes mellitus without complicationsGoiter 2 Panfilo Shin [address], [place], [place], [address] , [place]. tel:[phone] OFFICE/OUTPA TIENT VISIT, [facility], [address] [place], [address], [place] tel:[phone] [facility] HLP (chief complaint) DM (chief complaint) HTN (chief complaint) eyelid1 (chief complaint) HyperlipidemiaEssen tial (primary) hypertensionType 2 diabetes mellitus without complicationsOther benign neoplasm of skin of eyelid including canthusEncounter for screening for malignant neoplasm of colon 1 Panfilo Shin [address], [place], [place], [address] , [place]. tel:[phone] OFFICE/OUTPA TIENT VISIT, [facility], [address] [place], [address], [place] tel:[phone] [facility] DM (chief complaint) HLP (chief complaint) hair loss1 (chief complaint) HyperlipidemiaType 2 diabetes mellitus without complicationsGoiter 1 Panfilo Shin [address], [place], [place], [address] , [place]. tel:[phone] OFFICE/OUTPA TIENT VISIT, [facility], [address] [place], [address], [place] tel:[phone] [facility] HTN (chief complaint) HLP (chief complaint) DM (chief complaint) thyroid nodule1 (chief complaint) HyperlipidemiaLiver diseaseEssential (primary) hypertensionType 2 diabetes mellitus without complicationsThyroi d nodule Dec-0 1 Panfilo Shin [address], [place], [place], [address] , . tel:[phone] OFFICE/OUTPA TIENT VISIT, [facility], [address] [place], [address], [phone] [facility] DM (chief complaint) HLP (chief complaint) pneumonia1 (chief complaint) HTN (chief complaint) HyperlipidemiaLiver diseasePneumoniaEss ential (primary) hypertensionType 2 diabetes mellitus without complications 1 Panfilo Shin [address], [place], [place], [address] , [place]. tel:[phone] OFFICE/OUTPA TIENT VISIT, [facility], [address] [place], [address], [place] tel:[phone] [facility] polycythem ia1 (chief complaint) HLP (chief complaint) pneumonia1 (chief complaint) DM (chief complaint) HyperlipidemiaPneum oniaSecondary polycythemiaType 2 diabetes mellitus without complications Aug-3 - 0 Panfilo Shin [address], [place], [place], [address] , [place]. tel:[phone] OFFICE/OUTPA TIENT VISIT, [facility], [address] [place], [address], [place] tel:[phone] [facility] DM (chief complaint) HLP (chief complaint) LFT (chief complaint) HCT (chief complaint) pneumonia1 (chief complaint) HyperlipidemiaType 2 diabetes mellitus without complicationsLiver diseaseSecondary polycythemiaPneumon ia Aug-0 0 Panfilo Shin [address], [place], [place], [address] , [place]. tel:[phone] PREV VISIT, NEW, AGE 40-64 [facility], [address] [place], [address], [place] tel:[phone] [facility] physical (chief complaint) Encounter for general adult medical exam w abnormal findingsViral infectionEssential (primary) hypertensionDyspnea Pneumonia 0 Whittaker Azael. [address], [place], [place], [address] , [place]. tel:[phone] Family History Family Member Type Diagnosis Age At Onset Brother Problem Hyperlipidemia Mother Problem lung CA but not sure if it i s from colon 79 Father Problem prostate CA, another CA (Cau se Of ) 73 Brother Problem Diabetes mellitus type 2 61 Payers Payer name Insurance type Covered democrat ID Authoriza tiadam(s) [employer] [place] MINNIE DYER [id number] Social History Type Description Quantity Date Captured [...] ordered Referral Referred To: Tonie Licona [address] [place], [place], [phone] Ordered: Referrals: Allopathic & Osteopathic Physicians : Surgery. Tonie Licona. Evaluate and treat ordered Referral Ordered: [place] GUIDANCE ordered Referral Ordered: MAMMOGRAM, ONE BREAST ordered Referral Referred To: Luis De León [address] [place], [phone] Ordered: Referrals: Luis De León. Evaluate and [...] Pt denies any chest pain or headache HTN Pt has HTN >pt t akes lisinopril/hctz and her bp is stable. HLP Pt has HLP Pt ta kes crestor. Pt denies any myalgia .Pt has mildly high TG . phos Pt has mildly hi gh phos. Pt denies any muscle pain or weakness . DM Pt has DM. pt ta kes metformin and her a1c is 5.8. Pt denies any polyuria ,polydipsia Pt denies any neuropathy physical Pt needs annua p hysical, Pt [...] Pt denies any history of abnormal mammo flank pain1 Pt c/o acute ons et [...] right flank pain resolved. GERD1 Pt has gastritis . Pt has small shallow ulcer with negative biopsy .Pt is on omeprazole and doing ok DM pt has DM Pt tana es metformin only Pt unable to get rybelsus since it is very expensive. Pt denies any polyuria, polydipsia. Pt states that her glucose is around 120s . DM Pt takes metform in and rybelsus 3 mg. Pt lost some weight Pt denies any GI side effects Pt denies any abd pian weight loss1 Pt lost some grace ght with rybelsus. Pt denies any nausea, vomiting, early satiety, bloating. GERD Pt has intermitt ent GERD. Pt is on omeprazole daily and doing ok. Pt has egd scheduled next week. Pt denies any nausea, vomiting Pt had her gallbladder removed recently and she is doing ok post op. Pt denies any abd pain abd pain Pt c/o intermitt ent right [...] showed gallbladder disease. Pt denies any fever ABD PAIN Pt c/o intermitt ent right abdominal and right flank pain for several months Pt c/o mild crampy pain Pt denies any nausea, vomiting, diarrhea. Pt mostly notices the pain after food. Pt denies any rash. Pt has mild GERD sometimes. Pt had ultrasound done which showed fatty liver and 8 mm gallbladder polyp fatty liver1 Pt has fatty lea er. DM Pt has DM Pt tana es metformin and her glucose is getting worse. Pt also gained weight. Pt states that rybelsus is not covered by insurance. Pt did not oyster picker rybelsus. HLP Pt has mild high TG Pt is on crestor. her lipid profile is ok Pt denies any myalgia grave disease1 pt has grave dis ease. Pt denies any dysphagia or neck pain Pt sees endo Pt has alberto next monday. Pt is on methimazole. DM Pt has borderlin e DM. her glucose was 142 and her A1c is 6.0, which was slightly worse than 5.6 from last year. pt denies any polyuria, polydipsia polyp1 pt had colonosco py done 2019 [...] but no boosters. Pt failed OTC meds. HLP Pt has HLP. Pt t akes crestor .Pt denies any myalgia. Lab missed lipid profile HTN Pt has HTN. Pt t akes lisinopril/hctz. Pt is out of meds for several days. Her bp is around 154/90 today. Pt denies any chest pain or headache DM Pt has DM. Pt ta kes metformin and her lab showed A1c around 5.6. Pt denies any polyuria, polydipsia. Pt denies any neuropathy physical Pt needs annual physical. pt has [...] removed soon and she needs surgical clearance hair loss1 Pt has grave dis ease and she is on methimazole. Pt sees endo. Pt notices excessive amount of hair loss recently ,Pt denies any bald spot, Pt asked her endo about that and was it is due to her age. Pt denies any itchy scalp or rash HLP Pt has HLP. She takes crestor and her lipid profile has not changed very much. Her TG did decrease by about 200 points but TC has not changed. Pt denies any myalgia DM pt has DM Pt tana es metformin only .Pt states that her glucose is around 120s Pt denies any polyuria polydipsia Pt had lab done and her A1c is down to 5.4 from 7.8 HLP Pt takes crestor , Pt denies any myalgia DM Pt has DM, Pt ta kes metformin and her glucose is around 100 Pt denies any polyuria polydipsia. Pt denies any neuropathy thyroid nodule1 Pt has grave dis ease and thyroid nodule Pt just saw her endo who ordered lab and also thyroid ultrasound Pt denies any dysphagia or neck pain HTN Pt takes lisinop ril/hctz Pt denies any chest pain Her BP is around 120/60. DM Pt has been taki ng metformin. [...] Pt denies any chest pain or headache pneumonia Pt took levaquin .Pt denies any cough or any sob .Pt denies any fever or chest pain .Pt overall feels better . DM Pt has DM ,which is newly diagnosed .Pt denies any polyuria, polydipsia .Pt does see endo. Pt is not on any medication polycythemia1 Pt has mild poly cythemia. Pt has normal iron and ferritin . HLP Pt tolerating cr estor ok .P denies any myalgia DM Pt has high gluc ose Pt [...] Mental Status Date Cognitive Assessment Orientation - [place] ed to time, place, person, situation.
--- OUTSIDE RECORDS SUMMARY | 2025-01-31 10:26 | XMS_ITS | Clinical Summary ---
Author Organization [facility] Address [address] [place] [address] Phone Care Team Providers Care Sawyer Cork Slabs Name Role Phone Azael Whittaker MD Primary Care Provider [phone] Allergies Active Allergy Reactions Criticality Noted Date [...] Comments Blood Pressure 127/75 10/25/2024 10:15 AM OIL RECOVERY OPERATOR Pulse 76 10/25/2024 10:13 AM OIL RECOVERY OPERATOR Temperature 36.7 C (98.1 F) 10/25/2024 10:13 AM OIL RECOVERY OPERATOR Respiratory Rate 16 10/25/2024 10:1 3 AM OIL RECOVERY OPERATOR Oxygen Saturation 94% 10/25/2024 10: 13 AM OIL RECOVERY OPERATOR Inhaled Oxygen Concentration - - Weight 87.9 kg (193 lb 12.8 oz) 025 10:13 AM OIL RECOVERY OPERATOR Height 167.6 cm (5' 6 ) 07/11/2023 3:31 PM CDT Body Mass Index 31.28 07/11/2023 3:31 PM CDT Plan of Treatment Upcoming Encounters Date Type Department Care Team (Late st Contact Info) Description 02/28/2025 9:00 AM CDT Office Visit [facility] - [place] [address] [place] [id number] Delfino Head MD [address] [facility] [address] [facility] [address] [place] [address] Health Maintenance Due Date Last [...] A AND B [employer] [place] [address] Advance Directives For more information, please contact: [phone] * Full Code (Latest Code Status on File) Date Activated Date Inactivated Comments 07/15/2020 8:07 PM 07/16/2020 10:56 PM Care Teams Sawyer Cork Slabs Relationship Specialty Start Date End Date Azael Whittaker MD [address] [place] [phone] PCP - General Family Practice 07/11/23
--- OUTSIDE RECORDS SUMMARY | 2025-01-31 10:26 | XMS_ITS | Clinical Summary ---
Author Organization [facility] Address [address] [place] [address] Care Team Providers Care Life Insurance Actuary Name Role Phone Azael Whittaker MD Primary Care Provider [phone] Smiley Wright MD Unavailable [phone] Yessy Espinoza MD Unavailable [phone] Barb Tanner OD Unavailable [phone] Source Comments [facility],non-owned Affiliates and Associated Physician Practices is amultiple site organization consisting of ambulatory clinics and hospital sitesin [place], [place], [place] and [place]. This disclosure is being madepursuant to the Care Everywhere program and may not contain all information available regarding this patient. Last updated 18.[facility] Allergies Active Allergy Reactions Criticality Noted Date [...] RIVER MEDICARE AET MEDICARE MEDICARE MEDICARE AETNA Care Teams Life Insurance Actuary Relationship Specialty Start Date End Date Azael Whittaker MD PCP - General Family Medicine 04/14/21 Smiley Wright MD [address] [place] [address] Physician Endocrinology 04/14/21 Yessy Espinoza MD [address] [facility] [place] [address] Physician Ophthalmology 04/16/21 Barb Tanner OD [address] [place] [address] Coil Cutter Coil Cutter 04/16/21
== END 2025-01-31 10:22 | disposition home or self-care (01) ==
LOC: ANHIMG 10:22
PROVIDERS: PCP Emergency Medicine; Visit Provider Physician Assistant Surgical
DX: R92.1 Mammographic calcification found on diagnostic imaging of breast (principal); C50.912 Malignant neoplasm of unspecified site of left female breast
CPT/HCPCS: 77062; 77066; G0279

== ENCOUNTER 2025-03-06 08:49 | Outpatient (CLI) | payer MEDICARE, SELFPAY ==
--- NOTE | ~2025-03-06 | MM_ITS ---
MM post biopsy invasive LT, MM stereotactic specimen LT, MM stereotactic bx LT EXAMINATION: MM post biopsy invasive LT, MM stereotactic specimen LT, MM stereotactic bx LT INDICATION: Abnormal calcifications in the left breast. Stereotactic core biopsy is requested evalua te for malignancy. BREAST PARENCHYMAL COMPOSITION: Not dense: There are scattered areas of fibroglandular density. TECHNIQUE AND FINDINGS: The risks and potential benefits of the procedure were discussed with the patient and written informe d consent was obtained. The patient was placed in the prone position clustered at the table with the left breast in craniocaudal compression, and the area of interest was localized and targeted utilizi ng digital imaging with stereotaxis. After sterile preparation of the skin, 1% lidocaine was utilized for local anesthesia at the skin pun cture site and 1% lidocaine with epinephrine was utilized for deeper local anesthesia/is about the bi opsy site. A 9G Eviva vacuum assisted biopsy needle was advanced to the level of the calcification o f interest from a cephalad approach utilizing stereotactic guidance and a total of 6 tissue core biop sies were obtained. A specimen radiograph demonstrates that the calcifications of interest are included within the tissue cores. A tissue marker clip was then placed at the biopsy site. The needle was removed and hemosta sis was achieved. The patient tolerated the procedure well and there is no evidence of significant i mmediate complication. The patient was given verbal as well as written postprocedural instructions p rior to discharge from the department. Tissue cores were submitted to surgical pathology for histolo gic analysis. A 2-view left unilateral digital mammogram was obtained post procedure and this demonstrates that the tissue marker clip is in expected position.] IMPRESSION: 1. Successful stereotactic biopsy of calcifications in the upper inner quadrant of the left breast w ith post procedure mammogram for marker placement. Please refer to pathology report for histologic a nalysis. Reviewed, dictated and finalized at location B. IMPRESSION: 1. Successful stereotactic biopsy of calcifications in the upper inner quadran t of the left breast with post procedure mammogram for marker placement. Pleas e refer to pathology report for histologic analysis. IMPRESSION: 1. Successful stereotactic biopsy of calcifications in the upper inner quadran t of the left breast with post procedure mammogram for marker placement. Pleas e refer to pathology report for histologic analysis.
--- OUTSIDE RECORDS SUMMARY | 2025-03-06 09:12 | XMS_ITS | Clinical Summary ---
Author Organization [facility] Address [address] [place] [address] Care Team Providers Care Snath Handle Assembler Name Role Phone Azael Whittaker MD Primary Care Provider [phone] Smiley Wright MD Unavailable [phone] Yessy Espinoza MD Unavailable [phone] Barb Tanner OD Unavailable [phone] Source Comments [facility],non-owned Affiliates and Associated Physician Practices is amultiple site organization consisting of ambulatory clinics and hospital sitesin [place], [place], [place] and [place]. This disclosure is being madepursuant to the Care Everywhere program and may not contain all information available regarding this patient. Last updated 18.[facility] Allergies Active Allergy Reactions Criticality Noted Date [...] AET MEDICARE MEDICARE MEDICARE AETNA Care Teams Snath Handle Assembler Relationship Specialty Start Date End Date Azael Whittaker MD PCP - General Family Medicine 04/14/21 Smiley Wright MD [address] [place] [address] Physician Endocrinology 04/14/21 Yessy Espinoza MD [address] [facility] [place] [address] Physician Ophthalmology 04/16/21 Barb Tanner OD [address] [place] [address] Director Of Clinical Applications Director Of Clinical Applications 04/16/21
--- OUTSIDE RECORDS SUMMARY | 2025-03-06 09:12 | XMS_ITS | Continuity of Care Document ---
Author Organization [facility] Address [address] [place] [address] [place] [address] Phone Care Team Providers Care Physician Pediatrician Name Role Phone Azael Whittaker MD Unavailable [...] Diagnoses Date Provider Providers Copied on Encounter [facility], [address], [place], [address], [place] tel:[phone] [facility] physical (chief complaint) Encounter for general adult medical examination without abnormal findings 5 Panfilo Addison. [address], [address] , [place]. [phone] OFFICE/OUTPA TIENT VISIT, [facility], [place], [address], [address], [place] tel:[phone] [facility] GERD1 (chief complaint) bone1 (chief complaint) breast CA1 (chief complaint) HTN (chief complaint) GERD w/o esophagitisEssentia l (primary) hypertensionType 2 diabetes mellitus without complicationsThyroi d noduleOther specified disorder of bone densityMalignant neoplasm of unspecified site of left female breast 4 Panfilo Addison. [address], [address] , [place]. tel:[phone] OFFICE/OUTPA TIENT VISIT, [facility], [place], [address], [address], [place] tel:[phone] [facility] DM (chief complaint) phos (chief complaint) HLP (chief complaint) HTN (chief complaint) GERD w/o esophagitisMixed hyperlipidemiaEssen tial (primary) hypertensionType 2 diabetes mellitus without complicationsMalign ant neoplasm of unspecified site of left female breastOther disorders of phosphorus metabolism 4 Panfilo Addison. [address], [place], [place], [address] , [place]. tel:[phone] OFFICE/OUTPA TIENT VISIT, [facility], [place], [address], [place], [place], [address], [place] [phone] [facility] physical (chief complaint) Encounter for general adult medical exam w abnormal findingsGERD w/o esophagitisEssentia l (primary) hypertensionType 2 diabetes mellitus without complicationsMixed hyperlipidemiaMalig nant neoplasm of unspecified site of left female breast 4 Panfilo Addison. [address], [place], [place], [address] , [place]. tel:[phone] OFFICE/OUTPA TIENT VISIT, [facility], [place], [address], [place], [place], [address], [place] tel:[phone] [facility] breast CA (chief complaint) HTN (chief complaint) Essential (primary) hypertensionMaligna nt neoplasm of unspecified site of left female breast 3 Panfilo Addison. [address], [place], [place], [address] , [place]. tel:[phone] OFFICE/OUTPA TIENT VISIT, [facility], [place], [address], [place], [place], [address], [place] [phone] [facility] breast nodule1 (chief complaint) Lump in left breast, subareolar 3 Panfilo Addison. [address], [place], [place], [address] , [place]. tel:[phone] OFFICE/OUTPA TIENT VISIT, [facility], [place], [address], [place], [place], [address], [place] tel:[phone] [facility] breast mass1 (chief complaint) Lump in left breast, subareolar 3 Panfilo Addison. [address], [place], [place], [address] , [place]. tel:[phone] OFFICE/OUTPA TIENT VISIT, [facility], [place], [address], [place], [place], [address], [place] tel:[phone] [facility] DM (chief complaint) GERD1 (chief complaint) flank pain1 (chief complaint) Type 2 diabetes mellitus without complicationsGERD w/o esophagitisUpper abdominal painHypokalemiaInco nclusive mammogram 3 Panfilo Shin [address], [place], [place], [address] , [place]. tel: [phone] OFFICE/OUTPA TIENT VISIT, [facility], [place], [address], [place], [place], [address], [place] tel:[phone] [facility] GERD1 (chief complaint) DM (chief complaint) weight loss1 (chief complaint) GERD w/o esophagitisType 2 diabetes mellitus without complicationsAbnorm al weight lossDisease of gallbladder, unspecified 3 Panfilo Addison. [address], [address], [place], [place], [address] , [place]. tel: [phone] OFFICE/OUTPA TIENT VISIT, [facility], [place], [address], [place], [place], [address], [place] tel:[phone] [facility] abd pain (chief complaint) Generalized abdominal painDisease of gallbladder, unspecified January- 3 Panfilo Addison. [address], [place], [place], [address] , [place]. tel:[phone] OFFICE/OUTPA TIENT VISIT, [facility], [place], [address], [place], [place], [address], [place] tel:[phone] [facility] ABD PAIN (chief complaint) DM (chief complaint) fatty liver1 (chief complaint) Type 2 diabetes mellitus without complicationsFatty liverCholesterolosi s of gallbladderGERD w/o esophagitisUpper abdominal pain, unspecified Dec- 3 Panfilo Shin [address], [place], [place], [address] , [place]. tel:[phone] OFFICE/OUTPA TIENT VISIT, [facility], [place], [address], [place], [place], [address], [place] tel:[phone] [facility] DM (chief complaint) grave disease1 (chief complaint) HLP (chief complaint) polyp1 (chief complaint) weight gain1 (chief complaint) abd pain1 (chief complaint) Type 2 diabetes mellitus without complicationsGoiter Mixed hyperlipidemiaAbnor mal weight gainUpper abdominal pain, unspecified 3 Panfilo Shin [address], [place], [place], [address] , [place]. [phone] OFFICE/OUTPA TIENT VISIT, [facility], [place], [address], [place], [place], [address], [place] tel:[phone] [facility] physical (chief complaint) Encounter for general adult medical exam w abnormal findingsEssential (primary) hypertensionMixed hyperlipidemiaType 2 diabetes mellitus without complicationsGoiter Abnormal weight gain 3 Panfilo Shin [address], [place], [place], [address] , [place]. [phone] OFFICE/OUTPA TIENT VISIT, [facility], [place], [address], [place], [address], [place] tel:[phone] [facility] sick (chief complaint) Acute bronchitis 2 Panfilo Shin [address], [place], [place], [address] , [place]. [phone] OFFICE/OUTPA TIENT VISIT, [facility], [place], [address], [place], [place], [address], [place] tel:[phone] [facility] DM (chief complaint) HTN (chief complaint) HLP (chief complaint) HyperlipidemiaEssen tial (primary) hypertensionGoiterT ype 2 diabetes mellitus without complicationsLiver disease 2 Panfilo Shin [address], [place], [place], [address] , [place]. tel:[phone] OFFICE/OUTPA TIENT VISIT, [facility], [place], [address], [place], [place], [address], [place] tel:[phone] [facility] physical (chief complaint) Encounter for general adult medical exam w abnormal findingsEssential (primary) hypertensionHyperli pidemiaType 2 diabetes mellitus without complicationsGoiter 2 Panfilo Shin [address], [place], [place], [address] , [place]. tel:[phone] OFFICE/OUTPA TIENT VISIT, [facility], [place], [address], [address], [place] tel:[phone] [facility] HLP (chief complaint) DM (chief complaint) HTN (chief complaint) eyelid1 (chief complaint) HyperlipidemiaEssen tial (primary) hypertensionType 2 diabetes mellitus without complicationsOther benign neoplasm of skin of eyelid including canthusEncounter for screening for malignant neoplasm of colon 1 Panfilo Shin [address], [place], [place], [address] , [place]. tel:[phone] OFFICE/OUTPA TIENT VISIT, [facility], [place], [address], [place], [address], [place] tel:[phone] [facility] DM (chief complaint) HLP (chief complaint) hair loss1 (chief complaint) HyperlipidemiaType 2 diabetes mellitus without complicationsGoiter 1 Panfilo Shin [address], [place], [place], [address] , [place]. tel:[phone] OFFICE/OUTPA TIENT VISIT, [facility], [place], [address], [address], [place] tel:[phone] [facility] HTN (chief complaint) HLP (chief complaint) DM (chief complaint) thyroid nodule1 (chief complaint) HyperlipidemiaLiver diseaseEssential (primary) hypertensionType 2 diabetes mellitus without complicationsThyroi d nodule Dec-0 1 Panfilo Shin [address], [place], [place], [address] , . tel:[phone] OFFICE/OUTPA TIENT VISIT, [facility], [place], [address], [place], [address], [phone] [facility] DM (chief complaint) HLP (chief complaint) pneumonia1 (chief complaint) HTN (chief complaint) HyperlipidemiaLiver diseasePneumoniaEss ential (primary) hypertensionType 2 diabetes mellitus without complications 1 Panfilo Shin [address], [place], [place], [address] , [place]. tel:[phone] OFFICE/OUTPA TIENT VISIT, [facility], [place], [address], [address], [place] tel:[phone] [facility] polycythem ia1 (chief complaint) HLP (chief complaint) pneumonia1 (chief complaint) DM (chief complaint) HyperlipidemiaPneum oniaSecondary polycythemiaType 2 diabetes mellitus without complications Aug-3 - 0 Panfilo Shin [address], [place], [place], [address] , [place]. tel:[phone] OFFICE/OUTPA TIENT VISIT, [facility], [place], [address], [address], [place] tel:[phone] [facility] DM (chief complaint) HLP (chief complaint) LFT (chief complaint) HCT (chief complaint) pneumonia1 (chief complaint) HyperlipidemiaType 2 diabetes mellitus without complicationsLiver diseaseSecondary polycythemiaPneumon ia Aug-0 0 Panfilo Shin [address], [place], [place], [address] , [place]. tel:[phone] PREV VISIT, NEW, AGE 40-64 [facility], [address] [place], [place], [address], [place] tel:[phone] [facility] physical (chief complaint) Encounter for general adult medical exam w abnormal findingsViral infectionEssential (primary) hypertensionDyspnea Pneumonia 0 Whittaker Azael. [address], [place], [place], [address] , [place]. tel:[phone] Family History Family Member Type Diagnosis Age At Onset Brother Problem Hyperlipidemia Mother Problem lung CA but not sure if it i s from colon 79 Father Problem prostate CA, another CA (Cau se Of ) 73 Brother Problem Diabetes mellitus type 2 61 Payers Payer name Insurance type Covered democrat ID Authoriza tiadam(s) [employer] [place] MINNIE DYER [id number] Social History Type Description Quantity Date Captured [...] ordered Referral Referred To: Tonie Licona [address] [place], [place], [phone] Ordered: Referrals: Allopathic & Osteopathic Physicians : Surgery. Tonie Licona. Evaluate and treat ordered Referral Ordered: [place] GUIDANCE ordered Referral Ordered: MAMMOGRAM, ONE BREAST ordered Referral Referred To: Luis De León [address] [place], [phone] Ordered: Referrals: Luis De León. Evaluate and [...] crestor .Pt has grave disease Pt sees zoin and she is on methimazole Pt denies [...] covered by insurance. Pt did not order picker/assembler rybelsus. fatty liver1 Pt has fatty lea [...] Mental Status Date Cognitive Assessment Orientation - Grand Cane ed to time, place, person, situation.
--- OUTSIDE RECORDS SUMMARY | 2025-03-06 09:13 | XMS_ITS | Clinical Summary ---
Author Organization [facility] Address [address] [place] [address] Phone Care Team Providers Care Heat Treat Technician Name Role Phone Azael Whittaker MD Primary Care Provider [phone] Allergies Active Allergy Reactions Criticality Noted Date [...] Encounters Date Type Department Care Team Description 02/24/2025 2:00 PM CDT Office Visit [facility] Oncology and Hematology [facility] [address] [place] [phone] Delfino Head MD Malignant neoplasm of upper-inner quadrant of left breast in female, estrogen receptor positive (CMS/HCC) (Primary Dx) 02/12/2025 External Device Data STL ABSTRACTION Provider, Abstract 02/11/2025 External Device Data STL ABSTRACTION Provider, Abstract 12/11/2024 External Device Data STL ABSTRACTION Provider, [...] Sign Reading Time Taken Comments Blood Pressure 141/72 02/24/2025 2:29 PM CDT Pulse 72 02/24/2025 2:28 PM CDT Temperature 36.7 C (98 F) 02/24/2025 2:28 PM CDT Respiratory Rate 15 02/24/2025 2:28 PM CDT Oxygen Saturation 97% 02/24/2025 2:28 PM CDT Inhaled Oxygen Concentration - - Weight 87.6 kg (193 lb 3.2 oz) 02/24/2025 2:28 P M CDT Height 167.6 cm (5' 6) 07/11/2023 3:31 PM CDT Body Mass Index 31.18 07/11/2023 3:31 PM CDT Plan of Treatment Upcoming Encounters Date Type Department Care Team (Late st Contact Info) Description 03/12/2025 4:30 PM CDT Telephone Check Up [facility] Oncology and Hematology [facility] [address] [place] [address] Delfino Head MD [address] [place] [address] 07/04/2025 10:15 AM CDT Office Visit [facility] Oncology and Hematology [facility] [address] [place] [address] Delfino Head MD [address] [facility] [address] [place] [phone] Health Maintenance Due Date Last Done [...] - 2023-2 5 season) 2024 01/08/2021, 12/18/2020 DIABETES HBA1C Q 6 MONTHS 11/07/20242023, 11/13/2023, 06/28/2023, Additional history exists BREAST CANCER SCREENING 07/03/2025 07/03/20 24, 08/14/2023, 06/30/2023, Additional history exists OSTEOPOROSIS SCREENING 05/02/2029 05/02/2024 RSV VACCINE (60+ or ) (1 - 1-dose 75+ series) 2031 Procedures Procedure Name Priority Date/Time Associated Diagnosis Comments COMPREHENSIVE METABOLIC PANEL Routine 02/12/2025 6:10 AM CDT CBC WITH DIFFERENTIAL Routine 02/12/2025 6:10 AM CDT CANCER ANTIGEN 15-3 Routine 02/12/2025 6 :10 AM CDT Malignant neoplasm of upper-inner quadrant of left breast in female, estrogen receptor positive (CMS/HCC) from Last 3 Months Results * CANCER ANTIGEN 15-3 (02/12/2025 6:10 AM CDT) Pathologist [facility] CA 15-3 6 <32 U/mL [facility] Comment: This test was performed using the Siemens ([employer]) chemiluminescent method. Values obtained from different assay methods cannot be used interchangeably. CA 15-3 levels, regardless of value, should not be interpreted as absolute evidence of the presence or absence of disease. Test Performed at: [facility] [address] [place] [address] Beth Bean MD Blood 02/12/2025 6:10 AM CDT 02/12/2025 6:13 AM CDT us Delfino Head MD CHEMISTRY ORDERABLES Final Resu lt [facility] [phone] [facility] [address] [facility] [place] [address] * CBC WITH DIFFERENTIAL (02/12/2025 6:10 AM CDT) Pathologist [facility] WBC 4.2 3.8 - 10.8 Thousand/u L [facility] RBC 4.59 3.80 - 5.10 Million/uL [facility] HEMOGLOBIN 14.4 11.7 - 15.5 g/dL [facility] HEMATOCRIT 42.4 35.0 - 45.0 % [facility] MCV 92.4 80.0 - 100.0 fL [facility] MCH 31.4 27.0 - 33.0 pg [facility] MCHC 34.0 32.0 - 36.0 g/dL [facility] Comment: For adults, a slight decrease in the calculated MCHC value (in the range of 30 to 32 g/dL) is most likely not clinically significant; however, it should be interpreted with caution in correlation with other red cell parameters and the patient's clinical condition. RDW 13.0 11.0 - 15.0 % [facility] PLATELETS 254 140 - 400 Thousand/u L [facility] MPV 9.6 7.5 - 12.5 fL [facility] NEUTROPHIL ABSOLUTE 2,306 1,500 - 7,800 cells/uL [facility] LYMPHOCYTE ABSOLUTE 1,063 850 - 3,900 cells/uL [facility] MONOCYTE ABSOLUTE 449 200 - 950 cells/uL [facility] EOSINOPHIL ABSOLUTE 332 15 - 500 cells/uL [facility] BASOPHILS ABSOLUTE 50 0 - 200 cells/uL [facility] NEUTROPHIL 54.9 % [facility] LYMPHOCYTES 25.3 % [facility] MONOCYTE 10.7 % [facility] EOSINOPHILS 7.9 % [facility] BASOPHILS 1.2 % [facility] Comment: Test Performed at: [facility] [address] [place] [id number] Beth Bean MD 02/12/2025 6:10 AM CDT 02/12/2025 6:13 AM CDT us Delfino Head MD HEMATOLOGY ORDERABLES Final Res ult [facility] [phone] [address] * (ABNORMAL) COMPREHENSIVE METABOLIC PANEL (02/12/2025 6:10 AM CDT) GLUCOSE 133(H) 65 - 99 mg/dL [facility] Comment: Fasting reference interval For someone without known diabetes, a glucose value >125 mg/dL indicates that they may have diabetes and this should be confirmed with a follow-up test. BUN 14 7 - 25 mg/dL [facility] CREATININE 0.74 0.50 - 1.05 mg/dL [facility] GFR 88 > OR = 60 mL/min/1. 73m2 [facility] BUN/CREAT RATIO SEE NOTE: 6 (calc) [facility] Comment: Not Reported: BUN and Creatinine are within reference range. SODIUM 142 135 - 146 mmol/L [facility] POTASSIUM 4.0 3.5 - 5.3 mmol/L [facility] CHLORIDE 105 98 - 110 mmol/L [facility] CO2 28 20 - 32 mmol/L [facility] CALCIUM 9.4 8.6 - 10.4 mg/dL [facility] TOTAL PROTEIN 6.5 6.1 - 8.1 g/dL [facility] ALBUMIN 4.3 3.6 - 5.1 g/dL [facility] GLOBULIN 2.2 1.9 - 3.7 g/dL (calc) [facility] ALBUMIN/GLOBULIN RATIO 2.0 1.0 - 2.5 (calc) [facility] BILIRUBIN TOTAL 0.7 0.2 - 1.2 mg/dL [facility] ALKALINE PHOSPHATASE 57 37 - 153 U/L [facility] AST 15 10 - 35 U/L [facility] ALT 15 6 - 29 U/L [facility] Comment: Test Performed at: [facility] [address] [place] [address] Beth Bean MD 02/12/2025 6:10 AM CDT 02/12/2025 6:13 AM CDT us Delfino Head MD CHEMISTRY ORDERABLES Final Resu lt [facility] [phone] [facility] [address] [place] [address] from Last 3 Months Insurance RX [facility] Commercial MEDICARE PART A AND B MEDICARE PART A AND B AETNA MEDICARE SUPP AESSI Advance Directives For more information, please contact: [phone] * Full Code (Latest Code Status on File) Date Activated Date Inactivated Comments 07/15/2020 8:07 PM 07/16/2020 10:56 PM Care Teams Heat Treat Technician Relationship Specialty Start Date End Date Azael Whittaker MD [address] [place] [address] PCP - General Family Practice 07/11/23
--- OUTSIDE RECORDS SUMMARY | 2025-03-06 09:13 | XMS_ITS | Continuity of Care Document ---
Author Organization [facility] Address [address] [place] [address] [address] [place] [address] Phone Care Team Providers Care Resin Mixer Name Role Phone Julia Fields Unavailable Unavailable Advance Directives Directive Yes / No Effective Date File Name No Information Encounters Encounter Description Practice Location Reason(s) For Visit Diagnoses Date Provider Providers Copied on Encounter [facility], [address], [place], [place], [address], [place] tel:[phone] [facility] No Information [phone] [phone] Diamond Dumont. [address] [facility] , [address], [place], [address], [place]. tel:[phone] Family History Family Member Type Diagnosis Age At Onset No Information Payers Payer name Insurance type Covered democrat ID Authoriza tiadam(s) [facility] Commercial CI [id number] Social History Type Description Quantity Date Captured [...]
--- NOTE | 2025-03-06 09:49 | S_PTH ---
PATIENT: Rola Recinos LOC: [facility] U#:[id number] AGE/SX: 69/F ROOM: RE03/06/[address]: Tonie Licona MD : [id number] BED: DIS: 03/06/2025 SPEC #: [id number] RECD: 03/06/25 13:21 STATUS: MAGALI REQ #: [id number] VALERY: 03/06/25 09:[address]: Tonie Licona DEPT: [facility] Surgical RECD BY: Bárbara Rutledge ENTERED: 03/06/25 13:21 SP TYPE: Surgical OTHR DR: Azael Whittaker MD Tissues: A - Breast Biopsy B - Breast Biopsy Procedures: Hematoxylin and Eosin Stain Gross and Microscopic Level 4
== END 2025-03-06 08:50 | disposition home or self-care (01) ==
PROVIDERS: PCP Emergency Medicine; Visit Provider Surgery
DX: R92.1 Mammographic calcification found on diagnostic imaging of breast (principal); C50.912 Malignant neoplasm of unspecified site of left female breast; Z98.890 Other specified postprocedural states
CPT/HCPCS: 19081; 88305